=== PATIENT | male | born 1940 | race Caucasian/White ===

== ENCOUNTER 2017-10-24 03:20 | Inpatient (IN) | payer OTHER, MEDICARE ==
[2017-10-24] VITALS (23 sets, daily range): BP systolic 137–194; BP diastolic 64–108; PULSE 69–115; RESP 13–37; TEMP 98–101.9; O2SAT 83–100
[~2017-10-24] VITALS: Ht 165.1 cm; Wt 94.0 kg
[~2017-10-24 03:20] MED LIST: ASPI81TA82 PO; BACT800T5 PO; COEN400C PO; GLIP5 PO; METF1000 PO; MISC1CAP2 PO; OCUV PO; SIMV5TAB3 PO; TAMS0.4C67 PO; TRAZ100 PO; XANA1TAB6 PO
[2017-10-24] MEDS ORDERED: SODIUM CHLOR 0.9% 1000 ML INJ 1,000 ML IV ONE ×2 (03:35→04:45)
--- NOTE | 2017-10-24 03:35 | PD ---
HPI Chief Complaint: General Weakness Time Seen by Provider: 03:35 Travel History International Travel<30 days: No Contact w/Intl Traveler<30days: No Traveled to known affect area: No History of Present Illness HPI 76-year-old male presents to the emergency department from home by EMS transport for evaluation of generalized weakness. Patient was noted at home to be up out of bed to go to the bathroom because of generalized weakness he slipped to the floor landing on his knees bilaterally. Patient sustained superficial abrasions to the knees and was too weak to get up off of the floor by himself so knocked on the wall to get assistance from his who found him kneeling on the floor. EMS was called. Upon fire department arrival patient was placed on monitor and was identified to have ST elevation with QS pattern noted in lead 2 and aVF. Patient was given bolus of normal saline and upon EMS arrival patient was identified to be in a sinus tachycardic rhythm with frequent unifocal PVCs but no ST elevation was identified. PVCs decreased with further fluid hydration. Patient denies having any chest pain or shortness of breath. Denied any nausea or vomiting or referred neck jaw back shoulder arm or abdominal pain. Patient complains of bilateral knee pain secondary to landing on both knees and inability to stand secondary to knee pain and generalized weakness. No prior history of CAD or myocardial infarction. Patient does have history of hypertension dyslipidemia atrial fibrillation right bundle branch block chronic kidney disease and diabetes. Unknown use of anticoagulation therapy. Patient has chronic indwelling urinary catheter 1 year. [facility] Past Medical History Narrative Medical Diabetes chronic kidney disease depression atrial fibrillation dyslipidemia insomnia chronic low back pain hearing impaired umbilical herniorrhaphy right bundle branch block left anterior fascicular block CAD hyponatremia urinary retention unsteady gait; nursing notes reviewed High Cholesterol: Yes Diabetes: Yes (TYPE II) Diminished Hearing: Yes ([facility]) Genitourinary: Yes (UTI (04/21/16)) Past Surgical History Abdominal Surgery: Yes (UMBILICAL HERNIA REPAIR) Social History Alcohol Use: No (QUIT 1978) Tobacco Use: No (QUIT "A LONG TIME AGO") Substance Use: No Allergies-Medications (Allergen,Severity, Reaction): Coded Allergies: No Known Allergies (Verified , 04/21/16) Reported Meds & Prescriptions Reported Meds & Active Scripts Active Review of Systems Except as stated in HPI: all other systems reviewed are Neg General / Constitutional: No: Fever HENT: No: Congestion Cardiovascular: No: Chest Pain or Discomfort Respiratory: No: Shortness of Breath Gastrointestinal: No: Abdominal Pain Genitourinary: No: Flank Pain Musculoskeletal: Positive: Myalgias, Arthralgias, Pain (bilateral knees) Skin: No Rash Neurologic: Positive: Weakness, No: Dizziness, Syncope, Focal Abnormalities, Coordination Problem Psychiatric: No: Anxiety Hematologic/Lymphatic: No: Lymph Node Enlargement Physical Exam Narrative GENERAL: Well-developed well-nourished male in no acute distress no respiratory distress; GCS 15 SKIN: Warm and dry. HEAD: Normocephalic. Atraumatic. No scalp tenderness soft tissue swelling or bony abnormality. EYES: No scleral icterus. No injection or drainage. NECK: Supple, trachea midline. No JVD or lymphadenopathy. No midline tenderness to direct palpation along the cervical spine. CARDIOVASCULAR: Increased Regular rate and rhythm without murmurs, gallops, or rubs; occasional skipped beat. RESPIRATORY: Breath sounds equal bilaterally. No accessory muscle use. Clear to auscultation bilaterally. GASTROINTESTINAL: Abdomen soft, non-tender, nondistended. MUSCULOSKELETAL: No cyanosis, or edema. Bilateral knee pain without effusion or decreased range of motion or deformity noted bilateral abrasions. Bilateral radial and dorsalis pedis pulses 2+ to palpation. BACK: Nontender without obvious deformity. No CVA tenderness. Data Data Last Documented VS Vital Signs Date Time Temp Pulse Resp B/P (MAP) Pulse Ox O2 Delivery O2 Flow Rate FiO2 10/24/17 03:24 98.5 115 18 142/64 (90) 97 Orders Orders Electrocardiogram (10/24/17 03:35) Complete Blood Count With Diff (10/24/17 03:35) Comprehensive Metabolic Panel (10/24/17 03:35) Magnesium (Mg) (10/24/17 03:35) B-Type Natriuretic Peptide (10/24/17 03:35) Ckmb (Isoenzyme) Profile (10/24/17 03:35) Troponin I (10/24/17 03:35) Act Partial Throm Time (Ptt) (10/24/17 03:35) Prothrombin Time / Inr (Pt) (10/24/17 03:35) Urinalysis - C+S If Indicated (10/24/17 03:35) Chest, Single Ap (10/24/17 03:35) Ecg Monitoring (10/24/17 03:35) Iv Access Insert/Monitor (10/24/17 03:35) Oximetry (10/24/17 03:35) Sodium Chloride 0.9% Flush (Ns Flush) (10/24/17 03:45) Sodium Chlor 0.9% 1000 Ml Inj (Ns 1000 M (10/24/17 03:35) Sodium Chlorid 0.9% 500 Ml Inj (Ns 500 M (10/24/17 03:45) Lactic Acid (10/24/17 03:44) Blood Culture (10/24/17 03:44) Urine Culture (10/24/17 03:40) CKMB (10/24/17 03:39) CKMB% (10/24/17 03:39) Piperacil-Tazo 4.5 Gm Premix (Zosyn 4.5 (10/24/17 04:30) Vancomycin Inj (Vancomycin Inj) (10/24/17 04:30) Sodium Chlor 0.9% 1000 Ml Inj (Ns 1000 M (10/24/17 04:45) Labs Laboratory Tests Test 10/24/17 03:39 10/24/17 03:40 10/24/17 03:50 White Blood Count 16.7 TH/MM3 Red Blood Count 4.50 MIL/MM3 Hemoglobin 13.6 GM/DL Hematocrit 41.6 % Mean Corpuscular Volume 92.5 FL Mean Corpuscular Hemoglobin 30.2 PG Mean Corpuscular Hemoglobin Concent 32.6 % Red Cell Distribution Width 13.5 % Platelet Count 264 TH/MM3 Mean Platelet Volume 8.6 FL Neutrophils (%) (Auto) 84.7 % Lymphocytes (%) (Auto) 6.0 % Monocytes (%) (Auto) 8.9 % Eosinophils (%) (Auto) 0.2 % Basophils (%) (Auto) 0.2 % Neutrophils # (Auto) 14.1 TH/MM3 Lymphocytes # (Auto) 1.0 TH/MM3 Monocytes # (Auto) 1.5 TH/MM3 Eosinophils # (Auto) 0.0 TH/MM3 Basophils # (Auto) 0.0 TH/MM3 CBC Comment DIFF FINAL Differential Comment Prothrombin Time 11.1 SEC Prothromb Time International Ratio 1.1 RATIO Activated Partial Thromboplast Time 22.9 SEC Blood Urea Nitrogen 14 MG/DL Creatinine 1.43 MG/DL Random Glucose 222 MG/DL Total Protein 8.0 GM/DL Albumin 3.6 GM/DL Calcium Level 8.4 MG/DL Magnesium Level 2.1 MG/DL Alkaline Phosphatase 67 U/L Aspartate Amino Transf (AST/SGOT) 24 U/L Alanine Aminotransferase (ALT/SGPT) 24 U/L Total Bilirubin 0.6 MG/DL Sodium Level 131 MEQ/L Potassium Level 4.5 MEQ/L Chloride Level 95 MEQ/L Carbon Dioxide Level 18.7 MEQ/L Anion Gap 17 MEQ/L Estimat Glomerular Filtration Rate 48 ML/MIN Total Creatine Kinase 105 U/L Creatine Kinase MB 0.8 NG/ML Troponin I LESS THAN 0.02 NG/ML B-Type Natriuretic Peptide 68 PG/ML Urine Color YELLOW Urine Turbidity CLOUDY Urine pH 8.0 Urine Specific [place] 1.017 Urine Protein 30 mg/dL Urine Glucose (UA) NEG mg/dL Urine Ketones 10 mg/dL Urine Occult Blood MOD Urine Nitrite POS Urine Bilirubin NEG Urine Urobilinogen LESS THAN 2.0 MG/DL Urine Leukocyte Esterase LARGE Urine RBC /hpf Urine WBC /hpf Urine WBC Clumps MANY Urine Amorphous Sediment RARE Urine Bacteria MANY /hpf Urine Mucus FEW /lpf Microscopic Urinalysis Comment CULTURE INDICATED Lactic Acid Level 6.1 mmol/L MDM Medical Decision Making Medical Screen Exam Complete: Yes Emergency Medical Condition: Yes Medical Record Reviewed: Yes Interpretation(s) EKG: Sinus tachycardia rate 121 with frequent PVCs no acute ST elevation or injury pattern change noted; age-indeterminate QS inferiorly in lead 3 aVF incomplete right bundle branch block and left anterior fascicular block At 4:35 AM notified lactic acid elevated at 6.1 Vital Signs Date Time Temp Pulse Resp B/P (MAP) Pulse Ox O2 Delivery O2 Flow Rate FiO2 10/24/17 03:24 98.5 115 18 142/64 (90) 97 CBC & BMP Diagram 10/24/17 03:39 Total Protein 8.0, Albumin 3.6, Calcium Level 8.4 L, Magnesium Level 2.1, Alkaline Phosphatase 67, Aspartate Amino Transf (AST/SGOT) 24, Alanine Aminotransferase (ALT/SGPT) 24, Total Bilirubin 0.6 Differential Diagnosis Generalized weakness, arrhythmia, electrolyte disturbance, ACS, myocardial infarction, sepsis, bilateral knee contusion, fracture Narrative Course Patient placed on radiographer cardiac catheterization with continuous pulse oximetry; EKG performed which shows sinus tachycardia without ST elevation or injury pattern noted to have frequent unifocal PVCs without coupling. Patient given 500 cc bolus of normal saline. Blood cultures obtained along with lactic acid CBC is automated differential with leukocytosis and left shift; chemistries remarkable for bicarbonate of 18.7 and anion gap of 17 as well as renal insufficiency; CK total not elevated troponin I less than 0.02 not elevated and BNP 68. Sodium potassium calcium magnesium values found be grossly within normal range. Urinalysis markedly abnormal with innumerable white blood cells many bacteria and culture indicated. Patient administered presumptive IV antibiotic coverage with Zosyn 4.5 g IV piggyback and vancomycin 1 g. Chest x- ray reveals no obvious infiltrate. EKG is sinus tachycardia with frequent unifocal PVCs no acute ST elevation. Patient will need serial cardiac enzymes in view of fact that prior department rhythm strip does show acute ST elevation in V2 and aVF that has resolved and subsequent cardiac monitoring and on EKGs. Sepsis Criteria SIRS Criteria (2 or more): Heart rate over 90 (115), WBC > 57133, < 4000 or > 10% bands (16,700) Sepsis Criteria (SIRS+source): Infect source susp/known (abnormal ua w/ indwelling catheter) Septic Shock Criteria: Lactic acid >=4 (6.1) Physician Communication Physician Communication Case discussed with on-call [facility] for admission Diagnosis Primary Impression: Sepsis Qualified Codes: A41.9 - Sepsis, unspecified organism Additional Impressions: UTI (urinary tract infection) Qualified Codes: T83.511A - Infection and inflammatory reaction due to indwelling urethral catheter, initial encounter; N39.0 - Urinary tract infection , site not specified Frequent unifocal PVCs Admitting Information Admitting Physician Requests: Admit Nayeli Allen MD Oct 24, 2017 03:35
[2017-10-24] MEDS ORDERED: SODIUM CHLORIDE 0.9% FLUSH 10 ML FLUSH IVF PRN (03:45)
[2017-10-24] MEDS ORDERED: SODIUM CHLORID 0.9% 500 ML INJ 500 ML IV ONE (03:45)
[2017-10-24 03:57] LABS: AUTOMATED NEUTROPHIL # 14.1 TH/MM3 (1.8-7.7); BASOPHIL % 0.2 % (0.0-2.0); EOSINOPHIL % 0.2 % (0.0-4.0); HEMATOCRIT 41.6 % (39.0-51.0); HEMOGLOBIN 13.6 GM/DL (13.0-17.0); MEAN CELL VOLUME 92.5 FL (80.0-100.0); MEAN CORPUSCULAR HEMOGLOBIN 30.2 PG (27.0-34.0); MEAN CORPUSCULAR HGB CONC 32.6 % (32.0-36.0); MEAN PLATELET VOLUME 8.6 FL (7.0-11.0); MONO % 8.9 % (0.0-8.0); MONOCYTE # 1.5 TH/MM3 (0-0.9); NEUT % 84.7 % (16.0-70.0); PLATELET COUNT 264 TH/MM3 (150-450); RED CELL DISTRIBUTION WIDTH 13.5 % (11.6-17.2); WHITE BLOOD COUNT 16.7 TH/MM3 (4.0-11.0)
--- NOTE | 2017-10-24 03:58 | RADRPT ---
EXAM DATE/TIME: 10/24/2017 03:41 [place] COMPARISON: No previous studies available for comparison. INDICATIONS : Palpitations. MEDICAL HISTORY : Diabetes mellitus type II. SURGICAL HISTORY : None. ENCOUNTER: Initial ACUITY: 1 day PAIN SCORE: 0/10 LOCATION: Bilateral chest FINDINGS: Single AP view of the chest. Low lung volumes. The lungs are clear. Cardiomediastinal silhouette with in normal limits. No evidence of pleural effusion or pneumothorax. CONCLUSION: No acute cardiopulmonary disease identified. Aditya Madrigal MD on October 24, 2017 at 3:56 Board Certified Radiologist. This report was verified electronically.
[2017-10-24 04:05] LABS: AMORPHOUS SEDIMENT, URINE RARE; BACTERIA, URINE MANY /hpf; BILIRUBIN, URINE NEG (NEG); BLOOD, URINE MOD (NEG); GLUCOSE,URINE NEG (NEG); KETONE, URINE 10 mg/dL (NEG); MUCUS URINE FEW /lpf (OCC); NITRITE,URINE POS (NEG); URINE COLOR YELLOW (YELLW/STRAW); URINE LEUKOCYTE ESTERASE LARGE (NEG); WHITE BLOOD CELL CLUMPS MANY
[2017-10-24 04:19] LABS: ALBUMIN 3.6 GM/DL (3.4-5.0); ALKALINE PHOSPHATASE 67 U/L (45-117); ALT (GPT) 24 U/L (12-78); AST (GOT) 24 U/L (15-37); BICARBONATE 18.7 MEQ/L (21.0-32.0); BLOOD UREA NITROGEN 14 MG/DL (7-18); CALCIUM 8.4 MG/DL (8.5-10.1); CHLORIDE 95 MEQ/L (98-107); CREATININE 1.43 MG/DL (0.60-1.30); GLOMERULAR FILTRATION RATE 48 ML/MIN (>89); GLUCOSE,RANDOM 222 MG/DL (74-106); MAGNESIUM 2.1 MG/DL (1.5-2.5); SODIUM (NA) 131 MEQ/L (136-145); TOTAL BILIRUBIN ADULT 0.6 MG/DL (0.2-1.0); TROPONIN I LESS THAN 0.02 NG/ML (0.02-0.05)
[2017-10-24 04:23] LABS: INTERNATIONAL NORMALIZED RATIO 1.1 RATIO; PROTHROMBIN TIME - PATIENT 11.1 SEC (9.8-11.6)
[2017-10-24] MEDS ORDERED: VANCOMYCIN INJ 1,000 MG in SODIUM CHLOR 0.9% 250 ML INJ 250 ML IV ONE (04:30)
[2017-10-24] MEDS ORDERED: PIPERACIL-TAZO 4.5 GM PREMIX 100 ML IV ONE (04:30)
--- NOTE | 2017-10-24 05:31 | HHI.HP ---
HPI Service Critical Care Medicine Primary Care Physician Unknown Admission Diagnosis severe sepsis; uti; PVCs Diagnosis: Travel History International Travel<30 Days: No Contact w/Intl Traveler <30 Da: No Traveled to Known Affected Are: No History of Present Illness 76-year-old male presents for evaluation of generalized weakness. Patient was noted at home to be up out of bed to go to the bathroom because of generalized weakness he slipped to the floor landing on his knees bilaterally. Patient sustained superficial abrasions to the knees and was too weak to get up off of the floor by himself so knocked on the wall to get assistance from his who found him kneeling on the floor. EMS was called. Upon fire department arrival patient was placed on monitor and was identified to have ST elevation with QS pattern noted in lead 2 and aVF. He was given bolus of normal saline. Arrival to emergency department he was in sinus tachycardic rhythm with frequent unifocal PVCs but no ST elevation. PVCs decreased with further fluid hydration. Patient denies having any chest pain or shortness of breath. Denied any nausea or vomiting or referred neck jaw back shoulder arm or abdominal pain. Patient complains of bilateral knee pain secondary to landing on both knees and inability to stand secondary to knee pain and generalized weakness. No prior history of CAD or myocardial infarction. Patient does have history of hypertension dyslipidemia atrial fibrillation right bundle branch block chronic kidney disease and diabetes. Patient has chronic indwelling urinary catheter 1 year. Review of Systems Constitutional: COMPLAINS OF: Fatigue, Fever, Dizziness, DENIES: Diaphoretic episodes, Weight gain, Weight loss, Chills, Change in appetite, Night Sweats Endocrine: DENIES: Heat/cold intolerance, Polydipsia, Polyuria, Polyphagia Eyes: DENIES: Blurred vision, Diplopia, Eye inflammation, Eye pain, Vision loss , Photosensitivity, Double Vision Ears, nose, mouth, throat: DENIES: Tinnitus, Hearing loss, Vertigo, Nasal discharge, Oral lesions, Throat pain, Hoarseness, Ear Pain, Running Nose, Epistaxis, Sinus Pain, Toothache, Odynophagia Respiratory: DENIES: Apneas, Cough, Snoring, Wheezing, Hemoptysis, Sputum production, Shortness of breath Cardiovascular: DENIES: Chest pain, Palpitations, Syncope, Dyspnea on Exertion , PND, Lower Extremity Edema, Orthopnea, Claudication Gastrointestinal: DENIES: Abdominal pain, Black stools, Bloody stools, Constipation, Diarrhea, Nausea, Vomiting, Difficulty Swallowing, Anorexia Genitourinary: DENIES: Sexual dysfunction, Urinary frequency, Urinary incontinence, Urgency, Hematuria, Dysuria, Nocturia, Penile Discharge, Testicular Pain, Testicular Swelling Musculoskeletal: COMPLAINS OF: Joint pain, DENIES: Muscle aches, Stiffness, Joint Swelling, Back pain, Neck pain Integumentary: DENIES: Abnormal pigmentation, Nail changes, Pruritus, Rash Hematologic/lymphatic: DENIES: Bruising, Lymphadenopathy Immunologic/allergic: DENIES: Eczema, Urticaria Neurologic: COMPLAINS OF: Abnormal gait, Localized weakness, DENIES: Headache, Paresthesias, Seizures, Speech Problems, Tremor, Poor Balance Psychiatric: DENIES: Anxiety, Confusion, Mood changes, Depression, Hallucinations, Agitation, Suicidal Ideation, Homicidal Ideation, Delusions Past Family Social History Allergies: Coded Allergies: No Known Allergies (Verified Allergy, Unknown, 10/24/17) Past Medical History Diabetes Chronic kidney disease Depression Atrial fibrillation Dyslipidemia Insomnia Chronic low back pain Hearing impaired Umbilical hernia Hyponatremia Urinary retention Unsteady gait Diabetes type 2 Past Surgical History Umbilical hernia repair Reported Medications Reported Meds & Active Scripts Active Family History Family history of malignancy Social History Alcohol Use: No (QUIT 1978) Tobacco Use: No (QUIT "A LONG TIME AGO") Substance Use: No Physical Exam Vital Signs Vital Signs Date Time Temp Pulse Resp B/P (MAP) Pulse Ox O2 Delivery O2 Flow Rate FiO2 10/24/17 04:44 92 18 155/68 (97) 96 Room Air 10/24/17 03:24 98.5 115 18 142/64 (90) 97 Physical Exam GENERAL: Well-developed well-nourished male in no acute distress no respiratory distress; GCS 15 SKIN: Warm and dry. HEAD: Normocephalic. Atraumatic. No scalp tenderness soft tissue swelling or bony abnormality. EYES: No scleral icterus. No injection or drainage. NECK: Supple, trachea midline. No JVD or lymphadenopathy. No midline tenderness to direct palpation along the cervical spine. CARDIOVASCULAR: Increased Regular rate and rhythm without murmurs, gallops, or rubs; occasional skipped beat. RESPIRATORY: Breath sounds equal bilaterally. No accessory muscle use. Clear to auscultation bilaterally. GASTROINTESTINAL: Abdomen soft, non-tender, nondistended. MUSCULOSKELETAL: No cyanosis, or edema. Bilateral knee pain without effusion or decreased range of motion or deformity noted bilateral abrasions. Bilateral radial and dorsalis pedis pulses 2+ to palpation. BACK: Nontender without obvious deformity. No CVA tenderness. NEURO: Alert awake oriented 3, no focal weakness Laboratory Laboratory Tests Test 10/24/17 03:39 10/24/17 03:40 10/24/17 03:50 White Blood Count 16.7 Red Blood Count 4.50 Hemoglobin 13.6 Hematocrit 41.6 Mean Corpuscular Volume 92.5 Mean Corpuscular Hemoglobin 30.2 Mean Corpuscular Hemoglobin Concent 32.6 Red Cell Distribution Width 13.5 Platelet Count 264 Mean Platelet Volume 8.6 Neutrophils (%) (Auto) 84.7 Lymphocytes (%) (Auto) 6.0 Monocytes (%) (Auto) 8.9 Eosinophils (%) (Auto) 0.2 Basophils (%) (Auto) 0.2 Neutrophils # (Auto) 14.1 Lymphocytes # (Auto) 1.0 Monocytes # (Auto) 1.5 Eosinophils # (Auto) 0.0 Basophils # (Auto) 0.0 CBC Comment DIFF FINAL Differential Comment Prothrombin Time 11.1 Prothromb Time International Ratio 1.1 Activated Partial Thromboplast Time 22.9 Blood Urea Nitrogen 14 Creatinine 1.43 Random Glucose 222 Total Protein 8.0 Albumin 3.6 Calcium Level 8.4 Magnesium Level 2.1 Alkaline Phosphatase 67 Aspartate Amino Transf (AST/SGOT) 24 Alanine Aminotransferase (ALT/SGPT) 24 Total Bilirubin 0.6 Sodium Level 131 Potassium Level 4.5 Chloride Level 95 Carbon Dioxide Level 18.7 Anion Gap 17 Estimat Glomerular Filtration Rate 48 Total Creatine Kinase 105 Creatine Kinase MB 0.8 Troponin I LESS THAN 0.02 B-Type Natriuretic Peptide 68 Urine Color YELLOW Urine Turbidity CLOUDY Urine pH 8.0 Urine Specific [place] 1.017 Urine Protein 30 Urine Glucose (UA) NEG Urine Ketones 10 Urine Occult Blood MOD Urine Nitrite POS Urine Bilirubin NEG Urine Urobilinogen LESS THAN 2.0 Urine Leukocyte Esterase LARGE Urine RBC Urine WBC Urine WBC Clumps MANY Urine Amorphous Sediment RARE Urine Bacteria MANY Urine Mucus FEW Microscopic Urinalysis Comment CULTURE INDICATED Lactic Acid Level 6.1 Date/Time Source Procedure Growth Status 10/24/17 03:55 Blood Peripheral Aerobic Blood Culture Pending Received 10/24/17 03:55 Blood Peripheral Anaerobic Blood Culture Pending Received 10/24/17 03:40 Urine Random Urine Urine Culture Pending Received Result Diagram: 10/24/1733810/24/17338 Septic Shock Reassessment Septic shock perfusion: reassessment completed Caprini VTE Risk Assessment Caprini VTE Risk Assessment: Mod/High Risk (score >= 2) Caprini Risk Assessment Model Point Value = 1 Point Value = 2 Point Value = 3 Point Value = 5 Age 41-60 Minor surgery BMI > 25 kg/m2 Swollen legs Varicose veins or History of unexplained or recurrent spontaneous Oral contraceptives or hormone replacement Sepsis (< 1 month) Serious lung disease, including pneumonia (< 1 month) Abnormal pulmonary function Acute myocardial infarction Congestive heart failure (< 1 month) History of inflammatory bowel disease Medical patient at bed rest Age 61-74 Arthroscopic surgery Major open surgery (> 45 min) Laparoscopic surgery (> 45 min) Malignancy Confined to bed (> 72 hours) Immobilizing plaster cast Central venous access Age >= 75 History of VTE Family history of VTE Factor V Leiden Prothrombin [id number] Lupus anticoagulant Anticardiolipin antibodies Elevated serum homocysteine Heparin-induced thrombocytopenia Other congenital or acquired thrombophilia Stroke (< 1 month) Elective arthroplasty Hip, pelvis, or leg fracture Acute spinal cord injury (< 1 month) Prophylaxis Regimen Total Risk Factor Score Risk Level Prophylaxis Regimen 0-1 Low Early ambulation 2 Moderate Order ONE of the following: *Sequential Compression Device (SCD) *Heparin 5000 units SQ BID 3-4 Higher Order ONE of the following medications: *Heparin 5000 units SQ TID *Enoxaparin/Lovenox 40 mg SQ daily (WT < 150 kg, CrCl > 30 mL/min) *Enoxaparin/Lovenox 30 mg SQ daily (WT < 150 kg, CrCl > 10-29 mL/min) *Enoxaparin/Lovenox 30 mg SQ BID (WT < 150 kg, CrCl > 30 mL/min) AND/OR *Sequential Compression Device (SCD) 5 or more Highest Order ONE of the following medications: *Heparin 5000 units SQ TID (Preferred with Epidurals) *Enoxaparin/Lovenox 40 mg SQ daily (WT < 150 kg, CrCl > 30 mL/min) *Enoxaparin/Lovenox 30 mg SQ daily (WT < 150 kg, CrCl > 10-29 mL/min) *Enoxaparin/Lovenox 30 mg SQ BID (WT < 150 kg, CrCl > 30 mL/min) AND *Sequential Compression Device (SCD) Assessment and Plan Assessment and Plan Sepsis - Likely urinary tract origin - Panculture - Broad-spectrum antibiotics - De-escalate per sensitivity Diabetes mellitus - Insulin sliding scale - Hold by mouth meds until lactic acidosis resolved Lactic acidosis - Due to above - Monitor trend - Aggressive IV fluid hydration Abnormal EKG per EMS - 2-D echo - Series of EKGs and troponins DVT GI prophylaxis - Teds SCDs - Subcutaneous heparin - Pepcid Critical Care: The total critical care time was 35 minutes. Time to perform other separately billable procedures was not included in the critical care time. Molina Singleton MD Oct 24, 2017 5:31 am
[2017-10-24] MEDS ORDERED: MAGNESIUM HYDROXIDE SUSP 30 ML CUP PO PRN (05:45)
[2017-10-24] MEDS ORDERED: ONDANSETRON HCL 4 MG/2 ML VIAL IV PUSH PRN (05:45)
[2017-10-24] MEDS ORDERED: LACTULOSE SYRUP 20 GM/30 ML CUP PO PRN (05:45)
[2017-10-24] MEDS ORDERED: Vancomycin Consult Pharmacy 1 EA OTHER SCH (05:45)
[2017-10-24] MEDS ORDERED: BISACODYL 10 MG SUPP RECTAL PRN (05:45)
[2017-10-24] MEDS ORDERED: SENNOSIDES 8.6 MG TAB PO PRN (05:45)
[2017-10-24] MEDS ORDERED: MISCELLANEOUS NURSING INFORMATION XX SCH (05:45)
[2017-10-24] MEDS ORDERED: SODIUM CHLORIDE 0.9% FLUSH 10 ML FLUSH IV FLUSH PRN (05:45)
[2017-10-24] MEDS ORDERED: RESP: ALBUTEROL 2.5 MG/IPRATROPIUM 0.5 MG NEB (PRN) INH (05:45)
[2017-10-24] MEDS ORDERED: CHLORHEXIDINE GLUCONATE 2 % 1 PACK (2 CLOTHS) TOP PRN (05:45)
[2017-10-24] MEDS ORDERED: DEXTROSE 50% IN WATER 50 ML VIAL(D50) IV PUSH PRN (06:15)
[2017-10-24] MEDS ORDERED: GLUCAGON 1 MG/ML VIAL OTHER PRN (06:15)
[2017-10-24] MEDS ORDERED: TRAZ100T10 PO (06:21)
[2017-10-24] MEDS ORDERED: COEN400C PO (06:21)
[2017-10-24] MEDS ORDERED: METF1000 PO (06:21)
[2017-10-24] MEDS ORDERED: SIMV5TAB3 PO (06:21)
[2017-10-24] MEDS ORDERED: ASPI-516 CHEW (06:21)
[2017-10-24] MEDS ORDERED: GLIP5TAB8 PO (06:21)
[2017-10-24] MEDS: SODIUM CHLOR 0.9% 1000 ML INJ 1,000 ML IV SCH ×3 (06:22→22:28)
[2017-10-24] MEDS: HEPARIN SODIUM - SQ 10,000 UNITS/ML VIAL SQ SCH ×3 (06:34→20:45)
[2017-10-24] MEDS: DOCUSATE SODIUM 50 MG/SENNA 8.6 MG TAB PO SCH ×2 (10:20→20:45)
[2017-10-24] MEDS: FAMOTIDINE 20 MG/2 ML VIAL IV PUSH SCH ×2 (10:20→20:45)
[2017-10-24] MEDS: INSULIN NovoLIN REGULAR SUPPLEMENTAL SCALE SQ SCH ×4 (10:21→20:46)
[2017-10-24] MEDS: CEFEPIME INJ 2,000 MG in SODIUM CHLORIDE 0.9% INJ 100 ML IV SCH ×2 (10:21→15:53)
[2017-10-24] MEDS: SODIUM CHLORIDE 0.9% FLUSH 10 ML FLUSH IV FLUSH SCH ×2 (10:21→20:46)
--- NOTE | 2017-10-24 10:57 | PD.CONS ---
HPI Service Urology Consult Requested By Reason for Consult UTI, change SP tube Primary Care Physician Unknown Diagnosis: (1) UTI (urinary tract infection) ICD Code: N39.0 - Urinary tract infection, site not specified (2) Sepsis ICD Code: A41.9 - Sepsis, unspecified organism History of Present Illness 76 yo male h/o neurogenic bladder admitted after falling at home. During evaluation in ER, he was found to be febrile with temp of 101, WBC 16,000 and a UTI. He was admitted for further evaluation and Urology was consulted for SP tube change. He has had the Suprapubic Catheter for over 6 months, initially place by Dr. Jeffery, changed usually every month. It was last changed mid- September 2016. Denies abdominal pain, flank pain, nausea, vomiting, chest pain or trouble breathing. He gets frequent UTIs. Denies h/o kidney stones. Review of Systems Constitutional: COMPLAINS OF: Fever Musculoskeletal: COMPLAINS OF: Muscle aches Except as stated in HPI: all other systems reviewed are Neg Past Family Social History Past Medical History Neurogenic Bladder, UTI, Afib, hypercholesterolemia Past Surgical History umbilical hernia repair Reported Medications Metformin, glipizide Allergies: Coded Allergies: No Known Allergies (Verified Allergy, Unknown, 10/24/17) Active Ordered Medications Vancomycin, Insulin, Heparin Family History Denies urolithiasis, malignancies Social History h/o tobacco use; denies illicit drugs or alcohol use Physical Exam Vital Signs Date Time Temp Pulse Resp B/P (MAP) Pulse Ox O2 Delivery O2 Flow Rate FiO2 10/24/17 07:00 101.9 89 20 165/74 (104) 95 10/24/17 06:23 92 18 155/67 (96) 96 10/24/17 06:04 96 10/24/17 04:44 92 18 155/68 (97) 96 Room Air 10/24/17 03:24 98.5 115 18 142/64 (90) 97 Physical Exam GENERAL: This is a well-nourished, well-developed patient, in no apparent distress. SKIN: No rashes, ecchymoses or lesions. Cool and dry. HEAD: Atraumatic. Normocephalic. No temporal or scalp tenderness. EYES: Pupils equal round and reactive. Extraocular motions intact. No scleral icterus. No injection or drainage. ENT: Nose without bleeding, purulent drainage or septal hematoma. Throat without erythema, tonsillar hypertrophy or exudate. Uvula midline. Airway patent. NECK: Trachea midline. No JVD or lymphadenopathy. Supple, nontender, no meningeal signs. CARDIOVASCULAR: Regular rate and rhythm without murmurs, gallops, or rubs. RESPIRATORY: Clear to auscultation. Breath sounds equal bilaterally. No wheezes , rales, or rhonchi. GASTROINTESTINAL: Abdomen soft, non-tender, nondistended. No hepato-splenomegaly , or palpable masses. No guarding. GENITOURINARY: penis normal, urethral meatus normal, testes without mass. MUSCULOSKELETAL: Extremities without clubbing, cyanosis, or edema. No joint tenderness, effusion, or edema noted. No calf tenderness. Negative Homans sign bilaterally. NEUROLOGICAL: Awake and alert. Cranial nerves II through XII intact. Motor and sensory grossly within normal limits. Five out of 5 muscle strength in all muscle groups. Normal speech. Lab results reviewed: Yes Laboratory Tests Test 10/24/17 03:39 10/24/17 03:40 10/24/17 03:50 10/24/17 06:45 White Blood Count 16.7 Red Blood Count 4.50 Hemoglobin 13.6 Hematocrit 41.6 Mean Corpuscular Volume 92.5 Mean Corpuscular Hemoglobin 30.2 Mean Corpuscular Hemoglobin Concent 32.6 Red Cell Distribution Width 13.5 Platelet Count 264 Mean Platelet Volume 8.6 Neutrophils (%) (Auto) 84.7 Lymphocytes (%) (Auto) 6.0 Monocytes (%) (Auto) 8.9 Eosinophils (%) (Auto) 0.2 Basophils (%) (Auto) 0.2 Neutrophils # (Auto) 14.1 Lymphocytes # (Auto) 1.0 Monocytes # (Auto) 1.5 Eosinophils # (Auto) 0.0 Basophils # (Auto) 0.0 CBC Comment DIFF FINAL Differential Comment Prothrombin Time 11.1 Prothromb Time International Ratio 1.1 Activated Partial Thromboplast Time 22.9 Blood Urea Nitrogen 14 Creatinine 1.43 Random Glucose 222 Total Protein 8.0 Albumin 3.6 Calcium Level 8.4 Magnesium Level 2.1 Alkaline Phosphatase 67 Aspartate Amino Transf (AST/SGOT) 24 Alanine Aminotransferase (ALT/SGPT) 24 Total Bilirubin 0.6 Sodium Level 131 Potassium Level 4.5 Chloride Level 95 Carbon Dioxide Level 18.7 Anion Gap 17 Estimat Glomerular Filtration Rate 48 Total Creatine Kinase 105 Creatine Kinase MB 0.8 Troponin I LESS THAN 0.02 B-Type Natriuretic Peptide 68 Urine Color YELLOW Urine Turbidity CLOUDY Urine pH 8.0 Urine Specific [place] 1.017 Urine Protein 30 Urine Glucose (UA) NEG Urine Ketones 10 Urine Occult Blood MOD Urine Nitrite POS Urine Bilirubin NEG Urine Urobilinogen LESS THAN 2.0 Urine Leukocyte Esterase LARGE Urine RBC Urine WBC Urine WBC Clumps MANY Urine Amorphous Sediment RARE Urine Bacteria MANY Urine Mucus FEW Microscopic Urinalysis Comment CULTURE INDICATED Lactic Acid Level 6.1 Date/Time Source Procedure Growth Status 10/24/17 03:55 Blood Peripheral Aerobic Blood Culture Pending Received 10/24/17 03:55 Blood Peripheral Anaerobic Blood Culture Pending Received 10/24/17 03:40 Urine Random Urine Urine Culture Pending Received Result Diagram: 10/24/17 0339 10/24/17338 Imaging Last Impressions Chest X-Ray 10/24/17334 Signed Impressions: Service Date/Time: Tuesday, October 24, 2017 03:41 - CONCLUSION: No acute cardiopulmonary disease identified. Aditya Madrigal MD Assessment and Plan Assessment and Plan 76 yo male with neurogenic bladder, managed with SP tube, admitted after falling at home and found to have a UTI -SP tube changed successfully -Since he is symptomatic, recommend treatment with appropriate antibiotics. -Renal U/S -F/U with Dr. Jeffery upon d/c. Problem Qualifiers (1) UTI (urinary tract infection): Qualified Codes: T83.511A - Infection and inflammatory reaction due to indwelling urethral catheter, initial encounter; N39.0 - Urinary tract infection , site not specified (2) Sepsis: Qualified Codes: A41.9 - Sepsis, unspecified organism Burak Rosa MD Oct 24, 2017 10:57
--- NOTE | 2017-10-24 13:28 | RADRPT ---
EXAM DATE/TIME: 10/24/2017 11:38 [facility] COMPARISON: No previous studies available for comparison. INDICATIONS : Abnormal lab values. MEDICAL HISTORY : Hypercholesterolemia. Diabetes mellitus type 2. A-fib. UTI. Umbilical hernia. SURGICAL HISTORY : Umbilical hernia repair. Neurogenic bladder. Left hand surgery. ENCOUNTER: Initial ACUITY: 1 day PAIN SCORE: 10/27 LOCATION: Bilateral flank MEASUREMENTS: RIGHT KIDNEY: 11.5 x 5.6 x 5.8 cm LEFT KIDNEY: 11.6 x 6.5 x 6.0 cm FINDINGS: The kidneys are normal bilaterally without evidence of mass or hydronephrosis. There are simple cysts on the right the largest measuring 4.7 cm in the upper pole. A Branch catheter is present within the bladder which does not allow for evaluation. CONCLUSION: 1. Right renal cysts otherwise unremarkable Alexander Farnsworth MD on October 24, 2017 at 13:24 Board Certified Radiologist. This report was verified electronically.
--- NOTE | 2017-10-24 14:07 | EKG ---
Date Performed: 10/24/2017 Time Performed: 03:24:18 PTAGE: 76 years EKG: SINUS TACHYCARDIA WITH FREQUENT VENTRICULAR PREMATURE COMPLEXES INCOMPLETE RIGHT BUNDLE BRA NCH BLOCK LEFT ANTERIOR FASCICULAR BLOCK ABNORMAL ECG NO PREVIOUS TRACING DOCTOR: Doug Sparks Interpretating Date/Time 10/24/2017 14:06:45
--- NOTE | 2017-10-24 14:07 | EKG ---
Date Performed: 10/24/2017 Time Performed: 10:25:34 PTAGE: 76 years EKG: Sinus rhythm WITH FIRST DEGREE AV BLOCK WITH OCCASIONAL VENTRICULAR PREMATURE COMPLEXES RIGHT BUNDLE BRANCH BLOCK LEFT ANTERIOR FASCICULAR BLOCK ABNORMAL ECG PREVIOUS TRACING : 10/24/2017 03.24 Compared to prior tracing no significant change DOCTOR: Doug Sparks Interpretating Date/Time 10/24/2017 14:07:17
[2017-10-24] MEDS: MORPHINE SULFATE 2 MG/ML INJ IV PUSH PRN ×3 (14:38→20:46)
[2017-10-24] MEDS: VANCOMYCIN INJ 2,000 MG in SODIUM CHLORID 0.9% 500 ML INJ 500 ML IV SCH (17:00)
--- NOTE | 2017-10-24 17:15 | ECHRPT ---
Indication: CVA/TIA CONCLUSIONS The left ventricular systolic function is normal with an estimated ejection fraction in the range of 60-65%. Normal left ventricular size. Moderate concentric left ventricular hypertrophy. No regional wall motion abnormalities are present. Trace mitral valve regurgitation. There is trace tricuspid valve regurgitation. The estimated pulmonary arterial pressure is 39.2 mmHg. BP: 165 / 74 HR: 104 Rhythm: PVCs MEASUREMENTS (Male / Female) Normal Values Technical Quality:Fair 2D ECHO LV Diastolic Diameter PLAX 3.8 cm 4.2 - 5.9 / 3.9 - 5.3 cm LV Systolic Diameter PLAX 2.6 cm IVS Diastolic Thickness 1.5 cm 0.6 - 1.0 / 0.6 - 0.9 cm LVPW Diastolic Thickness 1.5 cm 0.6 - 1.0 / 0.6 - 0.9 cm LV Relative Wall Thickness 0.8 LVOT Diameter 2.0 cm LA Systolic Diameter LX 4.0 cm 3.0 - 4.0 / 2.7 - 3.8 cm LV Ejection Fraction MOD 4C 64.9 % LV Cardiac Index MOD 4C 2995.0 cm/minm LV Ejection Fraction 4C AL 65.5 % LV Cardiac Index 4C AL 3131.4 cm/minm M-MODE Aortic Root Diameter MM 2.8 cm LA Systolic Diameter MM 3.4 cm LA Ao Ratio MM 1.2 AV Cusp Separation MM 1.6 cm DOPPLER AV Peak Velocity 144.0 cm/s AV Peak Gradient 8.3 mmHg LVOT Peak Velocity 108.0 cm/s LVOT Peak Gradient 4.7 mmHg AV Area Cont Eq pk 2.4 cm MV Area PHT 3.6 cm Mitral E Point Velocity 73.5 cm/s Mitral A Point Velocity 129.0 cm/s Mitral E to A Ratio 0.6 LV E' Lateral Velocity 7.0 cm/s Mitral E to LV E' Lateral Ratio 10.5 LV E' Septal Velocity 4.3 cm/s Mitral E to LV E' Septal Ratio 17.1 TR Peak Velocity 270.0 cm/s TR Peak Gradient 29.2 mmHg Right Atrial Pressure 10.0 mmHg Pulmonary Artery Systolic Pressu 39.2 mmHg Right Ventricular Systolic Press 39.2 mmHg PV Peak Velocity 85.5 cm/s PV Peak Gradient 2.9 mmHg FINDINGS LEFT VENTRICLE The left ventricular systolic function is normal with an estimated ejection fraction in the range of 60-65%. Normal left ventricular size. Moderate concentric left ventricular hypertrophy. No regional wall motion abnormalities are present. RIGHT VENTRICLE Normal right ventricular size and systolic function. LEFT ATRIUM The left atrial size is normal. RIGHT ATRIUM The right atrial size is normal. ATRIAL SEPTUM Normal atrial septal thickness without atrial level shunting by limited color doppler interrogation. AORTA The aortic root and proximal ascending aorta are normal in size on limited imaging. MITRAL VALVE Structurally normal mitral valve. Trace mitral valve regurgitation. AORTIC VALVE Trileaflet aortic valve. No aortic valve stenosis or regurgitation. TRICUSPID VALVE Structurally normal tricuspid valve. There is trace tricuspid valve regurgitation. The estimated pulmonary arterial pressure is 39.2 mmHg. PULMONARY VALVE No pulmonary valve regurgitation or stenosis. VESSELS The inferior vena cava is normal in size. PERICARDIUM No pericardial effusion. Angel Kevin MD (Electronically Signed) Final Date:24 October 2017 17:14
--- NOTE | 2017-10-24 17:30 | RADRPT ---
EXAM DATE/TIME: 10/24/2017 15:35 [facility] COMPARISON: No previous studies available for comparison. INDICATIONS : Pain from fall. MEDICAL HISTORY : None. SURGICAL HISTORY : None. ENCOUNTER: Initial ACUITY: 1 day PAIN SCORE: 4/10 LOCATION: Right knee. FINDINGS: Two view examination of the right knee demonstrates no evidence of fracture or dislocation. Bony min eralization is normal. The suprapatellar soft tissues have a normal configuration. There is a 8mm kennedy bchondral cysts in the medial tibial plateau CONCLUSION: 1. There is no evidence of acute fracture. Alexander Farnsworth MD on October 24, 2017 at 17:27 Board Certified Radiologist. This report was verified electronically.
--- NOTE | 2017-10-24 17:34 | RADRPT ---
EXAM DATE/TIME: 10/24/2017 15:40 [facility] COMPARISON: No previous studies available for comparison. INDICATIONS : Pain from fall. MEDICAL HISTORY : None. SURGICAL HISTORY : None. ENCOUNTER: Initial ACUITY: 1 day PAIN SCORE: 4/10 LOCATION: Left knee. FINDINGS: There is mild osteoarthritis with joint space narrowing but no significant marginal osteophyte format ion in the medial tibial femoral compartment. There is no evidence of acute fracture. Bony mineraliza tion is normal. There is no evidence of joint effusion. CONCLUSION: 1. There is no evidence of acute fracture. Alexander Farnsworth MD on October 24, 2017 at 17:31 Board Certified Radiologist. This report was verified electronically.
[2017-10-24 19:47] LABS: TROPONIN I 0.1 NG/ML (0.02-0.05)
[2017-10-24] MEDS ORDERED: LABETALOL HCL 100 MG/20 ML VIAL IV PUSH PRN (20:30)
[2017-10-24] MEDS ORDERED: hydrALAZINE HCL 20 MG/ML VIAL IV PUSH PRN (20:30)
[2017-10-24] MEDS: traZODone HCL 50 MG TAB PO SCH (20:45)
[2017-10-24] MEDS: ZOLPIDEM TARTRATE 5 MG TAB PO PRN (20:45)
[2017-10-25] VITALS (17 sets, daily range): BP systolic 95–164; BP diastolic 53–87; PULSE 61–98; RESP 13–36; TEMP 97.8–99.8; O2SAT 72–97
[2017-10-25] MEDS: CHLORHEXIDINE GLUCONATE 2 % 1 PACK (2 CLOTHS) TOP SCH (00:29)
[2017-10-25] MEDS: CEFEPIME INJ 2,000 MG in SODIUM CHLORIDE 0.9% INJ 100 ML IV SCH ×4 (00:29→22:51)
[2017-10-25] MEDS: LORazepam 2 MG/ML VIAL IV PUSH PRN ×5 (03:21→23:47)
[2017-10-25] MEDS: MORPHINE SULFATE 2 MG/ML INJ IV PUSH PRN ×2 (03:22→23:14)
[2017-10-25 03:49] LABS: BASOPHIL % 0.4 % (0.0-2.0); EOSINOPHIL % 0.4 % (0.0-4.0); HEMATOCRIT 33.9 % (39.0-51.0); HEMOGLOBIN 11.3 GM/DL (13.0-17.0); LYMPH % 15.5 % (9.0-44.0); LYMPHOCYTE # 1.7 TH/MM3 (1.0-4.8); MEAN CELL VOLUME 90.9 FL (80.0-100.0); MEAN CORPUSCULAR HEMOGLOBIN 30.4 PG (27.0-34.0); MEAN CORPUSCULAR HGB CONC 33.5 % (32.0-36.0); MEAN PLATELET VOLUME 7.8 FL (7.0-11.0); MONO % 10.9 % (0.0-8.0); MONOCYTE # 1.2 TH/MM3 (0-0.9); NEUT % 72.8 % (16.0-70.0); PLATELET COUNT 178 TH/MM3 (150-450); RED BLOOD COUNT 3.73 MIL/MM3 (4.50-5.90); RED CELL DISTRIBUTION WIDTH 13.4 % (11.6-17.2)
[2017-10-25 04:24] LABS: ALBUMIN 2.9 GM/DL (3.4-5.0); ALKALINE PHOSPHATASE 54 U/L (45-117); ALT (GPT) 43 U/L (12-78); AST (GOT) 163 U/L (15-37); BICARBONATE 23.3 MEQ/L (21.0-32.0); BLOOD UREA NITROGEN 10 MG/DL (7-18); CALCIUM 7.5 MG/DL (8.5-10.1); CHLORIDE 103 MEQ/L (98-107); CREATININE 0.79 MG/DL (0.60-1.30); GLOMERULAR FILTRATION RATE 95 ML/MIN (>89); GLUCOSE,RANDOM 126 MG/DL (74-106); MAGNESIUM 2.2 MG/DL (1.5-2.5); PHOSPHORUS 2.4 MG/DL (2.5-4.9); SODIUM (NA) 134 MEQ/L (136-145); TOTAL BILIRUBIN ADULT 0.5 MG/DL (0.2-1.0); TOTAL PROTEIN 6.7 GM/DL (6.4-8.2); TROPONIN I 0.06 NG/ML (0.02-0.05)
[2017-10-25] MEDS: HEPARIN SODIUM - SQ 10,000 UNITS/ML VIAL SQ SCH ×3 (04:35→22:06)
[2017-10-25] MEDS: SODIUM CHLOR 0.9% 1000 ML INJ 1,000 ML IV SCH ×3 (06:42→22:51)
[2017-10-25] MEDS: INSULIN NovoLIN REGULAR SUPPLEMENTAL SCALE SQ SCH ×4 (08:00→21:00)
[2017-10-25] MEDS: DOCUSATE SODIUM 50 MG/SENNA 8.6 MG TAB PO SCH ×2 (08:11→22:03)
[2017-10-25] MEDS: FAMOTIDINE 20 MG/2 ML VIAL IV PUSH SCH ×2 (08:11→22:03)
[2017-10-25] MEDS: SODIUM CHLORIDE 0.9% FLUSH 10 ML FLUSH IV FLUSH SCH ×2 (08:12→22:03)
--- NOTE | 2017-10-25 08:18 | HHI.CCPN ---
Subjective Remarks/Hospital Course 76-year-old male presents for evaluation of generalized weakness. Patient was noted at home to be up out of bed to go to the bathroom because of generalized weakness he slipped to the floor landing on his knees bilaterally. Patient sustained superficial abrasions to the knees and was too weak to get up off of the floor by himself so knocked on the wall to get assistance from his who found him kneeling on the floor. EMS was called. Upon fire department arrival patient was placed on monitor and was identified to have ST elevation with QS pattern noted in lead 2 and aVF. He was given bolus of normal saline. Arrival to emergency department he was in sinus tachycardic rhythm with frequent unifocal PVCs but no ST elevation. PVCs decreased with further fluid hydration. Patient denies having any chest pain or shortness of breath. Denied any nausea or vomiting or referred neck jaw back shoulder arm or abdominal pain. Patient complains of bilateral knee pain secondary to landing on both knees and inability to stand secondary to knee pain and generalized weakness. No prior history of CAD or myocardial infarction. Patient does have history of hypertension dyslipidemia atrial fibrillation right bundle branch block chronic kidney disease and diabetes. Patient has chronic indwelling urinary catheter 1 year. Subjective: 10/25: Afebrile. No acute events overnight. Suprapubic catheter was changed by urology yesterday. Evaluation of bilateral knees via x-ray were negative. Patient tolerating diet. Home medications resumed. Objective Vital Signs Date Time Temp Pulse Resp B/P (MAP) Pulse Ox O2 Delivery O2 Flow Rate FiO2 10/25/17 06:00 61 10/25/17 04:00 99.8 17 95/53 (67) 93 10/24/17 21:22 21 10/24/17 04:44 Room Air Intake and Output 10/25/17 10/25/17 10/26/17 08:00 16:00 00:00 Intake Total 1340 ml Output Total 1600 ml Balance -260 ml Result Diagram: 10/25/17 03410/25/17 034 Imaging Last Impressions Chest X-Ray 10/24/17 0335 Signed Impressions: Service Date/Time: Tuesday, October 24, 2017 03:41 - CONCLUSION: No acute cardiopulmonary disease identified. Aditya Madrigal MD Renal Ultrasound 10/24/17 0000 Signed Impressions: Service Date/Time: Tuesday, October 24, 2017 11:38 - CONCLUSION: 1. Right renal cysts otherwise unremarkable Alexander Farnsworth MD Knee X-Ray 10/24/17 0000 Signed Impressions: Service Date/Time: Tuesday, October 24, 2017 15:40 - CONCLUSION: 1. There is no evidence of acute fracture. Alexander Farnsworth MD Objective Remarks GENERAL: Well-developed well-nourished male in no acute distress no respiratory distress; GCS 15 thing comfortably SKIN: Warm and dry. HEAD: Normocephalic. Atraumatic. No scalp tenderness soft tissue swelling or bony abnormality. EYES: No scleral icterus. No injection or drainage. NECK: Supple, trachea midline. No JVD or lymphadenopathy. No midline tenderness to direct palpation along the cervical spine. CARDIOVASCULAR: Increased Regular rate and rhythm without murmurs, gallops, or rubs; occasional skipped beat. RESPIRATORY: Breath sounds equal bilaterally. No accessory muscle use. Clear to auscultation bilaterally. GASTROINTESTINAL: Abdomen soft, non-tender, nondistended. MUSCULOSKELETAL: No cyanosis, or edema. Bilateral knee pain without effusion or decreased range of motion or deformity noted bilateral abrasions. Bilateral radial and dorsalis pedis pulses 2+ to palpation. BACK: Nontender without obvious deformity. No CVA tenderness. NEURO: Alert awake oriented 3, no focal weakness A/P Assessment and Plan Sepsis Leukocytosis - Likely urinary tract origin - Panculture - Continue Broad-spectrum antibiotics-leukocytosis resolving - De-escalate per sensitivity - Suprapubic catheter Diabetes mellitus - Insulin sliding scale - Hold by mouth meds until lactic acidosis resolved Lactic acidosis - Due to above - Monitor trend - IV fluid hydration-decrease to 125/hour Abnormal EKG per EMS - 2-D echo-EF 60-65%, trace TR, trace MR, no RWMA, PAP 39 - Series of EKGs and troponins DVT GI prophylaxis - Teds SCDs - Subcutaneous heparin - Pepcid Dispo: Level 2 follow up [facility]. Physician Patricia Aleman MD Oct 25, 2017 08:18
[2017-10-25] MEDS ORDERED: PHARMACY ORDERED LAB ONE (17:45)
[2017-10-25] MEDS: VANCOMYCIN INJ 2,000 MG in SODIUM CHLORID 0.9% 500 ML INJ 500 ML IV SCH (18:00)
[2017-10-25] MEDS: traZODone HCL 50 MG TAB PO SCH (22:03)
[2017-10-25] MEDS: ZOLPIDEM TARTRATE 5 MG TAB PO PRN (23:47)
[2017-10-26] VITALS (11 sets, daily range): BP systolic 126–191; BP diastolic 57–104; PULSE 74–96; RESP 15–23; TEMP 97.9–98.8; O2SAT 87–99
[2017-10-26] MEDS: LORazepam 2 MG/ML VIAL IV PUSH PRN ×2 (01:19→04:10)
[2017-10-26] MEDS: CHLORHEXIDINE GLUCONATE 2 % 1 PACK (2 CLOTHS) TOP SCH (04:00)
[2017-10-26] MEDS ORDERED: PHARMACY ORDERED LAB ONE (05:45)
[2017-10-26] MEDS: HEPARIN SODIUM - SQ 10,000 UNITS/ML VIAL SQ SCH ×3 (07:12→21:50)
[2017-10-26] MEDS: INSULIN NovoLIN REGULAR SUPPLEMENTAL SCALE SQ SCH ×4 (08:00→21:00)
[2017-10-26] MEDS: FAMOTIDINE 20 MG/2 ML VIAL IV PUSH SCH ×2 (08:24→21:50)
[2017-10-26] MEDS: CEFEPIME INJ 2,000 MG in SODIUM CHLORIDE 0.9% INJ 100 ML IV SCH ×2 (08:24→16:37)
[2017-10-26] MEDS: SODIUM CHLORIDE 0.9% FLUSH 10 ML FLUSH IV FLUSH SCH ×2 (08:24→21:00)
[2017-10-26] MEDS: SODIUM CHLOR 0.9% 1000 ML INJ 1,000 ML IV SCH ×3 (08:25→18:31)
[2017-10-26] MEDS: DOCUSATE SODIUM 50 MG/SENNA 8.6 MG TAB PO SCH ×2 (08:25→21:00)
[2017-10-26 10:45] LABS: HEMATOCRIT 37.6 % (39.0-51.0); HEMOGLOBIN 12.9 GM/DL (13.0-17.0); MEAN CELL VOLUME 91.8 FL (80.0-100.0); MEAN CORPUSCULAR HEMOGLOBIN 31.4 PG (27.0-34.0); MEAN CORPUSCULAR HGB CONC 34.2 % (32.0-36.0); MEAN PLATELET VOLUME 8.1 FL (7.0-11.0); PLATELET COUNT 182 TH/MM3 (150-450); RED BLOOD COUNT 4.09 MIL/MM3 (4.50-5.90); RED CELL DISTRIBUTION WIDTH 13.4 % (11.6-17.2); WHITE BLOOD COUNT 8.3 TH/MM3 (4.0-11.0)
[2017-10-26] MEDS ORDERED: POTASSIUM PHOSPHATE MONOBASIC 500 MG TAB PO/TUBE PRN (11:00)
[2017-10-26] MEDS ORDERED: POTASSIUM PHOSPHATE INJ 30 MMOL in SODIUM CHLOR 0.9% 250 ML INJ 250 ML IV PRN (11:00)
[2017-10-26] MEDS ORDERED: POTASSIUM CHLOR 20 MEQ PREMIX 100 ML IV PRN ×2 (11:00)
[2017-10-26] MEDS ORDERED: MAGNESIUM SULFATE INJ 2 GM in SODIUM CHLORIDE 0.9% INJ 96 ML IV PRN (11:00)
[2017-10-26] MEDS ORDERED: MIDAZOLAM HCL 2 MG/2 ML VIAL IV PUSH ONE (11:00)
[2017-10-26] MEDS ORDERED: SODIUM PHOSPHATE INJ 30 MMOL in SODIUM CHLOR 0.9% 250 ML INJ 240 ML IV PRN (11:00)
[2017-10-26] MEDS ORDERED: MAGNESIUM OXIDE 400 MG TAB PO PRN (11:00)
[2017-10-26] MEDS ORDERED: MAGNESIUM SULFATE INJ 4 GM in SODIUM CHLORIDE 0.9% INJ 92 ML IV PRN (11:00)
[2017-10-26] MEDS ORDERED: POTASSIUM PHOSPHATE MONOBASIC 500 MG TAB PO PRN (11:00)
[2017-10-26] MEDS ORDERED: POTASSIUM CHLOR 40 MEQ PREMIX 100 ML IV PRN ×2 (11:00)
[2017-10-26] MEDS ORDERED: POTASSIUM CHLORIDE 25 MEQ EFFERVESCENT TAB PO PRN (11:00)
--- NOTE | 2017-10-26 11:03 | HHI.CCPN ---
Subjective Remarks/Hospital Course 76-year-old male presents for evaluation of generalized weakness. Patient was noted at home to be up out of bed to go to the bathroom because of generalized weakness he slipped to the floor landing on his knees bilaterally. Patient sustained superficial abrasions to the knees and was too weak to get up off of the floor by himself so knocked on the wall to get assistance from his who found him kneeling on the floor. EMS was called. Upon fire department arrival patient was placed on monitor and was identified to have ST elevation with QS pattern noted in lead 2 and aVF. He was given bolus of normal saline. Arrival to emergency department he was in sinus tachycardic rhythm with frequent unifocal PVCs but no ST elevation. PVCs decreased with further fluid hydration. Patient denies having any chest pain or shortness of breath. Denied any nausea or vomiting or referred neck jaw back shoulder arm or abdominal pain. Patient complains of bilateral knee pain secondary to landing on both knees and inability to stand secondary to knee pain and generalized weakness. No prior history of CAD or myocardial infarction. Patient does have history of hypertension dyslipidemia atrial fibrillation right bundle branch block chronic kidney disease and diabetes. Patient has chronic indwelling urinary catheter 1 year. Subjective: 10/25: Afebrile. No acute events overnight. Suprapubic catheter was changed by urology yesterday. Evaluation of bilateral knees via x-ray were negative. Patient tolerating diet. Home medications resumed. 10/26: During the night the patient became confused, requiring 2. wrist restraints. Patient received 2 mg of morphine 4 mg of Ativan during the night as well as trazodone and Ambien. All sedative type medications been discontinued. Possible ICU delirium, CT brain, ammonia level, electrolytes are pending. Objective Vital Signs Date Time Temp Pulse Resp B/P (MAP) Pulse Ox O2 Delivery O2 Flow Rate FiO2 10/26/17 08:00 74 10/26/17 08:00 98.2 15 136/63 (87) 87 10/26/17 04:05 Nasal Cannula 2.00 10/25/17 19:25 21 Intake and Output 10/26/17 10/26/17 10/27/17 08:00 16:00 00:00 Intake Total 1000 ml Output Total 1275 ml Balance -1275 ml 1000 ml Result Diagram: 10/26/17 1015 10/25/17 0340 Other Results Microbiology Date/Time Source Procedure Growth Status 10/24/17 03:40 Urine Random Urine Urine Culture - Final Escherichia Coli Klebsiella Oxytoca Complete Imaging Last Impressions Chest X-Ray 10/24/17 0335 Signed Impressions: Service Date/Time: Tuesday, October 24, 2017 03:41 - CONCLUSION: No acute cardiopulmonary disease identified. Aditya Madrigal MD Renal Ultrasound 10/24/17 0000 Signed Impressions: Service Date/Time: Tuesday, October 24, 2017 11:38 - CONCLUSION: 1. Right renal cysts otherwise unremarkable Alexander Farnsworth MD Knee X-Ray 10/24/17 0000 Signed Impressions: Service Date/Time: Tuesday, October 24, 2017 15:40 - CONCLUSION: 1. There is no evidence of acute fracture. Alexander Farnsworth MD Objective Remarks GENERAL: Well-developed well-nourished male in no acute distress no respiratory distress; GCS 14 SKIN: Warm and dry. HEAD: Normocephalic. Atraumatic. No scalp tenderness soft tissue swelling or bony abnormality. EYES: No scleral icterus. No injection or drainage. NECK: Supple, trachea midline. No JVD or lymphadenopathy. No midline tenderness to direct palpation along the cervical spine. CARDIOVASCULAR: Increased Regular rate and rhythm without murmurs, gallops, or rubs; occasional skipped beat. RESPIRATORY: Breath sounds equal bilaterally. No accessory muscle use. Clear to auscultation bilaterally. GASTROINTESTINAL: Abdomen soft, non-tender, nondistended. MUSCULOSKELETAL: No cyanosis, or edema. Bilateral knee pain without effusion or decreased range of motion or deformity noted bilateral abrasions. Bilateral radial and dorsalis pedis pulses 2+ to palpation. BACK: Nontender without obvious deformity. No CVA tenderness. NEURO: Alert awake oriented 3, no focal weakness. Patient confused alert to self only A/P Assessment and Plan Altered mental status/ICU delirium ? - Obtain ammonia level - Obtain CT brain - Discontinue all sedative type medications to include morphine, trazodone, Ambien - Maintain sleep hygiene, sleep-wake cycle-consider Haldol for agitation Sepsis Leukocytosis - UTI- E coli, Klebsiella - Panculture - Continue Broad-spectrum antibiotics-leukocytosis resolving. Follow-up CBC - De-escalate per sensitivity - Suprapubic catheter Diabetes mellitus - Insulin sliding scale - ADA 1800-calorie diet Lactic acidosis-resolved - Due to above - Monitor trend - Discontinue IV fluids, Heplock IV Abnormal EKG per EMS - 2-D echo-EF 60-65%, trace TR, trace MR, no RWMA, PAP 39 - Series of EKGs and troponins DVT GI prophylaxis - Teds SCDs - Subcutaneous heparin - Pepcid PT evaluation and treat Dispo: Level 2 follow up Plan transfer [facility] floor. [facility]up lab and imaging studies Physician Patricia Aleman MD Oct 26, 2017 11:03
[2017-10-26 11:05] LABS: CREATININE 0.72 MG/DL (0.60-1.30)
[2017-10-26 11:55] LABS: HEMATOCRIT 36.3 % (39.0-51.0); HEMOGLOBIN 12.4 GM/DL (13.0-17.0); MEAN CELL VOLUME 91.1 FL (80.0-100.0); MEAN CORPUSCULAR HEMOGLOBIN 31.2 PG (27.0-34.0); MEAN CORPUSCULAR HGB CONC 34.2 % (32.0-36.0); PLATELET COUNT 192 TH/MM3 (150-450); RED BLOOD COUNT 3.98 MIL/MM3 (4.50-5.90); RED CELL DISTRIBUTION WIDTH 13.4 % (11.6-17.2); WHITE BLOOD COUNT 8.4 TH/MM3 (4.0-11.0)
--- NOTE | 2017-10-26 12:00 | RADRPT ---
EXAM DATE/TIME: 10/26/2017 11:40 [facility] COMPARISON: No previous studies available for comparison. INDICATIONS : Altered mental status. RADIATION DOSE: 56.35 CTDIvol (mGy) MEDICAL HISTORY : Cardiovascular disease. Diabetes mellitus type 2. SURGICAL HISTORY : None. ENCOUNTER: Initial ACUITY: 1 day PAIN SCALE: 0/10 LOCATION: cranial TECHNIQUE: Multiple contiguous axial images were obtained of the head. Using automated exposure control and adj ustment of the mA and/or kV according to patient size, radiation dose was kept as low as reasonably a chievable to obtain optimal diagnostic quality images. DICOM format image data is available electro nically for review and comparison. FINDINGS: CEREBRUM: The ventricles are normal for age with moderate atrophic change. Periventricular white matter lucenci es are noted characteristic of chronic small vessel ischemic change. No evidence of midline shift, ma ss lesion, hemorrhage or acute infarction. No extra-axial fluid collections are seen. POSTERIOR FOSSA: The cerebellum and brainstem are intact. The 4th ventricle is midline. The cerebellopontine angle i s unremarkable. EXTRACRANIAL: The visualized portion of the orbits is intact. SKULL: The calvaria is intact. No evidence of skull fracture. CONCLUSION: 1. No acute hemorrhage, mass or evidence of infarction. 2. Atrophy and chronic small vessel ischemic changes. Darvin Segovia MD on October 26, 2017 at 11:57 Board Certified Radiologist. This report was verified electronically.
[2017-10-26 12:10] LABS: BICARBONATE 25.1 MEQ/L (21.0-32.0); CALCIUM 8.1 MG/DL (8.5-10.1); CREATININE 0.78 MG/DL (0.60-1.30); MAGNESIUM 2.1 MG/DL (1.5-2.5); PHOSPHORUS 1.9 MG/DL (2.5-4.9)
--- NOTE | 2017-10-26 12:15 | RADRPT ---
EXAM DATE/TIME: 10/26/2017 12:00 [facility] COMPARISON: CHEST SINGLE AP, October 24, 2017, 3:41. INDICATIONS : Short of breath MEDICAL HISTORY : Cardiovascular disease. Diabetes mellitus type II. SURGICAL HISTORY : None. ENCOUNTER: Subsequent ACUITY: 3 days PAIN SCORE: 0/10 LOCATION: chest FINDINGS: A single view of the chest demonstrates no focal consolidation. No effusion. No pneumothorax. Heart s ize normal. Tortuous aorta. CONCLUSION: 1. No acute findings. Say Appiah MD on October 26, 2017 at 12:11 Board Certified Radiologist. This report was verified electronically.
[2017-10-26] MEDS: VANCOMYCIN INJ 1,500 MG in SODIUM CHLORID 0.9% 500 ML INJ 500 ML IV SCH (14:56)
--- NOTE | 2017-10-26 16:26 | PQ ---
Physician Query Response Document PATIENT: HARSHAL DELATORRE : 1940 ADMIT DATE: 10/24/2017 4:59 AM DISCH DATE: RESPONDING PROVIDER #: [place] QUERY TEXT: Cause and Effect Relationship Please clarify in documentation the relationship, if any, between UTI and INDWELLING SUPRAPUBIC CATHETER Such as: -- Conditions are due to or associated -- Unrelated to each other -- Other, please specify PLEASE CALL [facility] [id number] FOR ASSISTANCE, THANK YOU! The patient's Clinical Indicators include: PER PROGRESS NOTE: Sepsis Leukocytosis - Likely urinary tract origin - Panculture - Continue Broad-spectrum antibiotics-leukocytosis resolving - De-escalate per sensitivity - Suprapubic catheter PER UROLOGY: He has had the Suprapubic Catheter for over 6 months Query created by: Milvia Kolb on 10/25/2017 11:25 AM RESPONSE TEXT: Pt with UTI due to indwelling suprapubic catheter as a result of neurogenic bladder Electronically signed by: Patricia Lawton MD 10/26/2017 4:21 PM
[2017-10-27] VITALS (10 sets, daily range): BP systolic 133–154; BP diastolic 65–89; PULSE 56–112; RESP 17–18; TEMP 98.3–99.2; O2SAT 96–98
[2017-10-27] MEDS: CEFEPIME INJ 2,000 MG in SODIUM CHLORIDE 0.9% INJ 100 ML IV SCH ×3 (00:35→15:44)
[2017-10-27] MEDS: VANCOMYCIN INJ 1,500 MG in SODIUM CHLORID 0.9% 500 ML INJ 500 ML IV SCH ×2 (01:38→13:01)
[2017-10-27] MEDS: CHLORHEXIDINE GLUCONATE 2 % 1 PACK (2 CLOTHS) TOP SCH (03:08)
[2017-10-27] MEDS ORDERED: HALOPERIDOL LACTATE 5 MG/ML AMP IV PUSH ONE (04:00)
[2017-10-27] MEDS: HEPARIN SODIUM - SQ 10,000 UNITS/ML VIAL SQ SCH ×3 (06:23→22:05)
[2017-10-27] MEDS: SODIUM CHLORIDE 0.9% FLUSH 10 ML FLUSH IV FLUSH SCH ×2 (09:08→21:00)
[2017-10-27] MEDS: DOCUSATE SODIUM 50 MG/SENNA 8.6 MG TAB PO SCH ×2 (09:08→21:00)
[2017-10-27] MEDS: INSULIN NovoLIN REGULAR SUPPLEMENTAL SCALE SQ SCH ×4 (09:08→22:02)
[2017-10-27] MEDS: FAMOTIDINE 20 MG/2 ML VIAL IV PUSH SCH ×2 (09:08→22:04)
[2017-10-27 10:18] LABS: HEMATOCRIT 34.9 % (39.0-51.0); HEMOGLOBIN 11.7 GM/DL (13.0-17.0); MEAN CELL VOLUME 90.8 FL (80.0-100.0); MEAN CORPUSCULAR HEMOGLOBIN 30.5 PG (27.0-34.0); MEAN CORPUSCULAR HGB CONC 33.6 % (32.0-36.0); MEAN PLATELET VOLUME 8.6 FL (7.0-11.0); PLATELET COUNT 187 TH/MM3 (150-450); RED BLOOD COUNT 3.84 MIL/MM3 (4.50-5.90); RED CELL DISTRIBUTION WIDTH 13.1 % (11.6-17.2); WHITE BLOOD COUNT 7.7 TH/MM3 (4.0-11.0)
[2017-10-27 10:41] LABS: BICARBONATE 22.8 MEQ/L (21.0-32.0); CALCIUM 8.2 MG/DL (8.5-10.1); CREATININE 0.77 MG/DL (0.60-1.30); MAGNESIUM 2.1 MG/DL (1.5-2.5)
[2017-10-27 10:42] LABS: PHOSPHORUS 2.6 MG/DL (2.5-4.9)
[2017-10-27] MEDS: SODIUM CHLOR 0.9% 1000 ML INJ 1,000 ML IV SCH (15:44)
--- NOTE | 2017-10-27 19:44 | HHI.PR ---
Subjective Remarks Patient was agitated and confused in am, now patient is off restraints and less confused. Patient had to be administered Haldol once in am. Objective Vitals Vital Signs Date Time Temp Pulse Resp B/P (MAP) Pulse Ox O2 Delivery O2 Flow Rate FiO2 10/27/17 16:12 98.3 79 18 151/85 (107) 97 10/27/17 16:00 92 10/27/17 13:30 99.1 56 17 133/89 (104) 98 10/27/17 12:23 98.8 97 18 148/67 (94) 96 10/27/17 12:00 85 10/27/17 08:12 98.6 62 18 134/72 (92) 96 10/27/17 08:00 75 10/27/17 04:00 112 10/27/17 04:00 98.9 92 18 154/68 (96) 97 10/27/17 00:00 99.2 90 18 139/65 (89) 96 10/27/17 00:00 94 10/26/17 21:18 97 21 10/26/17 20:00 98.8 94 18 126/57 (80) 99 10/26/17 20:00 96 I/O 10/26/17 10/26/17 10/26/17 10/27/17 10/27/17 10/27/17 07:00 15:00 23:00 07:00 15:00 23:00 Intake Total 100 ml 1100 ml 240 ml 855 ml 720 ml Output Total 1275 ml 1700 ml 1300 ml 3550 ml Balance -1175 ml 1100 ml -1460 ml -445 ml -2830 ml Intake Oral 240 ml 240 ml 720 ml IV Total 100 ml 1100 ml 615 ml Output Urine Total 1275 ml 1700 ml 1300 ml 3550 ml # Voids 1 # Bowel Movements 0 0 0 1 Result Diagram: 10/27/17 0820 10/27/17 0820 Imaging Last Impressions Head CT 10/26/17 0000 Signed Impressions: Service Date/Time: Thursday, October 26, 2017 11:40 - CONCLUSION: 1. No acute hemorrhage, mass or evidence of infarction. 2. Atrophy and chronic small vessel ischemic changes. Darvin Segovia MD Chest X-Ray 10/26/17 0000 Signed Impressions: Service Date/Time: Thursday, October 26, 2017 12:00 - CONCLUSION: 1. No acute findings. Say Appiah MD Renal Ultrasound 10/24/17 0000 Signed Impressions: Service Date/Time: Tuesday, October 24, 2017 11:38 - CONCLUSION: 1. Right renal cysts otherwise unremarkable Alexander Farnsworth MD Knee X-Ray 10/24/17 0000 Signed Impressions: Service Date/Time: Tuesday, October 24, 2017 15:40 - CONCLUSION: 1. There is no evidence of acute fracture. Alexander Farnsworth MD Objective Remarks GENERAL: Well-developed well-nourished male in no acute distress no respiratory distress; GCS 14. SKIN: Warm and dry. HEAD: Normocephalic. Atraumatic. No scalp tenderness soft tissue swelling or bony abnormality. EYES: No scleral icterus. No injection or drainage. NECK: Supple, trachea midline. No JVD or lymphadenopathy. No midline tenderness to direct palpation along the cervical spine. CARDIOVASCULAR: Increased Regular rate and rhythm without murmurs, gallops, or rubs; occasional skipped beat. RESPIRATORY: Breath sounds equal bilaterally. No accessory muscle use. Clear to auscultation bilaterally. GASTROINTESTINAL: Abdomen soft, non-tender, nondistended. MUSCULOSKELETAL: No cyanosis, or edema. Bilateral knee pain without effusion or decreased range of motion or deformity noted bilateral abrasions. Bilateral radial and dorsalis pedis pulses 2+ to palpation. BACK: Nontender without obvious deformity. No CVA tenderness. NEURO: Alert awake oriented 3, no focal weakness. Patient confused alert to self only Psych: Patient less agitated and answering appropriately to questions. A/P Problem List: (1) UTI (urinary tract infection) ICD Code: N39.0 - Urinary tract infection, site not specified Status: Acute (2) Sepsis ICD Code: A41.9 - Sepsis, unspecified organism Status: Acute Assessment and Plan Altered mental status/ICU delirium ? - Obtain ammonia level - Obtain CT brain - Discontinue all sedative type medications to include morphine, trazodone, Ambien - Maintain sleep hygiene, sleep-wake cycle-consider Haldol for agitation / sp Haldol for agitation, now off restraints. Ammonia level normal. CT head negative for acute process. Suspect altered mental status is due to metabolic encephalopathy due to sepsis. Encephalopathy is now much improved and resolving. Sepsis Leukocytosis - UTI- E coli, Klebsiella - Panculture - Continue Broad-spectrum antibiotics-leukocytosis resolving. Follow-up CBC - De-escalate per sensitivity - Suprapubic catheter 10/27 Dc Vancomycin IV and continue IV Cefepime. Diabetes mellitus - Insulin sliding scale - ADA 1800-calorie diet Lactic acidosis-resolved - Due to above - Monitor trend - resolved after IVF. Abnormal EKG per EMS - 2-D echo-EF 60-65%, trace TR, trace MR, no RWMA, PAP 39 - Series of EKGs and troponins DVT GI prophylaxis - Teds SCDs - Subcutaneous heparin - Pepcid PT evaluation and treat - will need PT at rehab facility. Discharge Planning Possible DC in am pending complete resolution of encephalopathy. Problem Qualifiers (1) UTI (urinary tract infection): Qualified Codes: T83.511A - Infection and inflammatory reaction due to indwelling urethral catheter, initial encounter; N39.0 - Urinary tract infection , site not specified (2) Sepsis: Qualified Codes: A41.9 - Sepsis, unspecified organism Jens Washington MD Oct 27, 2017 19:44
[2017-10-27] MEDS: BACITRACIN TOP OINT 15 GM TUBE TOPICAL SCH (22:02)
[2017-10-28] VITALS: BP 133/63; PULSE 75; PULSE 90; RESP 18; TEMP 98.4; O2SAT 94
[2017-10-28] MEDS ORDERED: BISACODYL 10 MG SUPP RECTAL PRN (01:45)
[2017-10-28] MEDS ORDERED: PHARMACY ORDERED LAB ONE (01:45)
[2017-10-28] MEDS: CEFEPIME INJ 2,000 MG in SODIUM CHLORIDE 0.9% INJ 100 ML IV SCH ×2 (02:57→09:30)
[2017-10-28 04:00] VITALS: BP 126/66; PULSE 74; RESP 16; TEMP 98.1; O2SAT 98
[2017-10-28] MEDS: CHLORHEXIDINE GLUCONATE 2 % 1 PACK (2 CLOTHS) TOP SCH (04:00)
[2017-10-28] MEDS: HEPARIN SODIUM - SQ 10,000 UNITS/ML VIAL SQ SCH ×3 (05:26→21:44)
[2017-10-28 08:00] VITALS: BP 163/73; PULSE 72; PULSE 76; RESP 18; TEMP 97.5; O2SAT 97
[2017-10-28] MEDS: DOCUSATE SODIUM 50 MG/SENNA 8.6 MG TAB PO SCH ×2 (09:31→21:45)
[2017-10-28] MEDS: FAMOTIDINE 20 MG/2 ML VIAL IV PUSH SCH ×2 (09:31→21:44)
[2017-10-28] MEDS: SODIUM CHLORIDE 0.9% FLUSH 10 ML FLUSH IV FLUSH SCH ×2 (09:31→21:46)
[2017-10-28] MEDS: INSULIN NovoLIN REGULAR SUPPLEMENTAL SCALE SQ SCH ×4 (09:31→21:00)
[2017-10-28] MEDS: BACITRACIN TOP OINT 15 GM TUBE TOPICAL SCH ×2 (09:31→21:45)
[2017-10-28] MEDS: ACETAMINOPHEN 325 MG TAB PO PRN ×2 (11:03→21:44)
[2017-10-28 11:48] LABS: BICARBONATE 24.5 MEQ/L (21.0-32.0); CALCIUM 8.3 MG/DL (8.5-10.1); CREATININE 0.7 MG/DL (0.60-1.30)
[2017-10-28 12:00] VITALS: BP 135/62; PULSE 78; PULSE 86; RESP 16; TEMP 98.4; O2SAT 97
[2017-10-28 12:15] LABS: HEMATOCRIT 36.9 % (39.0-51.0); HEMOGLOBIN 12.8 GM/DL (13.0-17.0); MEAN CORPUSCULAR HEMOGLOBIN 31.2 PG (27.0-34.0); MEAN CORPUSCULAR HGB CONC 34.6 % (32.0-36.0); MEAN PLATELET VOLUME 8.2 FL (7.0-11.0); PLATELET COUNT 223 TH/MM3 (150-450); WHITE BLOOD COUNT 5.7 TH/MM3 (4.0-11.0)
--- NOTE | 2017-10-28 13:30 | HHI.PR ---
Subjective Remarks Patient denies any complaints. Slight confusion on date but AAOx2 Denies cp/sob Afebrile. Sodium dropped. Objective Vitals Vital Signs Date Time Temp Pulse Resp B/P (MAP) Pulse Ox O2 Delivery O2 Flow Rate FiO2 10/28/17 11:00 Room Air 10/28/17 11:00 Room Air 10/28/17 09:00 Room Air 10/28/17 08:00 72 10/28/17 08:00 97.5 76 18 163/73 (103) 97 10/28/17 04:00 Room Air 10/28/17 04:00 98.1 74 16 126/66 (86) 98 10/28/17 00:00 90 10/28/17 00:00 Room Air 10/28/17 00:00 98.4 75 18 133/63 (86) 94 10/27/17 20:00 90 10/27/17 20:00 Room Air 10/27/17 16:12 98.3 79 18 151/85 (107) 97 10/27/17 16:00 92 10/27/17 13:30 99.1 56 17 133/89 (104) 98 I/O 10/27/17 10/27/17 10/27/17 10/28/17 10/28/17 10/28/17 07:00 15:00 23:00 07:00 15:00 23:00 Intake Total 855 ml 720 ml 440 ml Output Total 1300 ml 3550 ml 1000 ml Balance -445 ml -2830 ml -560 ml Intake Oral 240 ml 720 ml 240 ml IV Total 615 ml 200 ml Output Urine Total 1300 ml 3550 ml 1000 ml # Voids 1 # Bowel Movements 0 1 0 Result Diagram: 10/28/17 1021 10/28/17 1021 Imaging Last Impressions Head CT 10/26/17 0000 Signed Impressions: Service Date/Time: Thursday, October 26, 2017 11:40 - CONCLUSION: 1. No acute hemorrhage, mass or evidence of infarction. 2. Atrophy and chronic small vessel ischemic changes. Darvin Segovia MD Chest X-Ray 10/26/17 0000 Signed Impressions: Service Date/Time: Thursday, October 26, 2017 12:00 - CONCLUSION: 1. No acute findings. Say Appiah MD Renal Ultrasound 10/24/17 0000 Signed Impressions: Service Date/Time: Tuesday, October 24, 2017 11:38 - CONCLUSION: 1. Right renal cysts otherwise unremarkable Alexander Farnsworth MD Knee X-Ray 10/24/17 0000 Signed Impressions: Service Date/Time: Tuesday, October 24, 2017 15:40 - CONCLUSION: 1. There is no evidence of acute fracture. Alexander Farnsworth MD Objective Remarks GENERAL: Well-developed well-nourished male in no acute distress no respiratory distress; GCS 14. SKIN: Warm and dry. HEAD: Normocephalic. Atraumatic. No scalp tenderness soft tissue swelling or bony abnormality. EYES: No scleral icterus. No injection or drainage. NECK: Supple, trachea midline. No JVD or lymphadenopathy. No midline tenderness to direct palpation along the cervical spine. CARDIOVASCULAR: Increased Regular rate and rhythm without murmurs, gallops, or rubs; occasional skipped beat. RESPIRATORY: Breath sounds equal bilaterally. No accessory muscle use. Clear to auscultation bilaterally. GASTROINTESTINAL: Abdomen soft, non-tender, nondistended. MUSCULOSKELETAL: No cyanosis, or edema. Bilateral knee pain without effusion or decreased range of motion or deformity noted bilateral abrasions. Bilateral radial and dorsalis pedis pulses 2+ to palpation. BACK: Nontender without obvious deformity. No CVA tenderness. NEURO: Alert awake oriented 2, no focal weakness. Patient not alerted to place. Psych: Patient less agitated and answering appropriately to questions. Procedures none Medications and IVs Current Medications Medications (Trade) Dose Ordered Sig/Taryn Route Start Time Stop Time Status Last Admin (NS Flush) 2 ml UNSCH PRN IV FLUSH 10/24/17 05:45 (NS Flush) 2 ml BID IV FLUSH 10/24/17 09:00 10/28/17 09:31 (Tylenol) 650 mg Q6H PRN PO 10/24/17 05:45 10/28/17 11:03 (Pepcid Inj) 20 mg Q12HR IV PUSH 10/24/17 09:00 10/28/17 09:31 (Zofran Inj) 4 mg Q6H PRN IV PUSH 10/24/17 05:45 (Ambien) 5 mg HS PRN PO 10/24/17 05:45 10/25/17 23:47 (Duoneb Neb) 1 ampule Q2HR NEB PRN INH 10/24/17 05:45 (Heparin Inj) 5,000 units Q8H SQ 10/24/17 06:00 10/28/17 05:26 Miscellaneous Information 1 Q361D XX 10/24/17 05:45 10/24/17 05:45 (Chlorhexidine 2% Cloth) 3 pack Taper DAILY@04 TOP 10/25/17 04:00 10/21/18 03:59 10/26/17 04:00 (Chlorhexidine 2% Cloth) 3 pack UNSCH PRN TOP 10/24/17 05:45 (Savita-Colace) 1 tab BID PO 10/24/17 09:00 10/28/17 09:31 (Milk Of Magnesia Liq) 30 ml Q12H PRN PO 10/24/17 05:45 (Senokot) 17.2 mg Q12H PRN PO 10/24/17 05:45 (Dulcolax Supp) 10 mg DAILY PRN RECTAL 10/24/17 05:45 10/27/17 18:18 (Lactulose Liq) 30 ml DAILY PRN PO 10/24/17 05:45 10/27/17 14:04 (D50w (Vial) Inj) 50 ml UNSCH PRN IV PUSH 10/24/17 06:15 (Glucagon Inj) 1 mg UNSCH PRN OTHER 10/24/17 06:15 (NovoLIN R SUPPLEMENTAL SCALE) 1 ACHS SLIDING SCALE SQ 10/24/17 08:00 10/28/17 12:33 (Desyrel) 50 mg HS PO 10/24/17 21:00 Future Hold 10/25/17 22:03 (Norvasc) 10 mg DAILY PO 10/25/17 09:00 10/28/17 09:31 (Apresoline Inj) 20 mg Q4H PRN IV PUSH 10/24/17 20:30 10/26/17 16:36 (Trandate Inj) 10 mg Q4H PRN IV PUSH 10/24/17 20:30 10/24/17 20:48 (Baciguent Oint) 1 applic BID TOPICAL 10/27/17 21:00 10/28/17 09:31 (Dulcolax Supp) 10 mg DAILY PRN RECTAL 10/28/17 01:45 (Ceftin) 500 mg Q12HR PO 10/28/17 21:00 UNV A/P Problem List: (1) Sepsis ICD Code: A41.9 - Sepsis, unspecified organism Status: Resolved (2) UTI (urinary tract infection) ICD Code: N39.0 - Urinary tract infection, site not specified Status: Acute (3) Metabolic encephalopathy ICD Code: G93.41 - Metabolic encephalopathy Status: Resolved (4) Hyponatremia ICD Code: E87.1 - Hypo-osmolality and hyponatremia Status: Acute (5) Diabetes mellitus ICD Code: E11.9 - Type 2 diabetes mellitus without complications Status: Chronic Assessment and Plan Sepsis Leukocytosis Secondary to urinary tract infection due to indwelling suprapubic catheter as a result of neurogenic bladder. Urine culture grew Escherichia coli and Klebsiella. Blood cultures obtained and negative to date. The patient was started on IV broad-spectrum antibiotics which include IV vancomycin and IV cefepime. IV vancomycin was later discontinued and the patient was continued IV cefepime. The patient is more stable I will switch to oral cefuroxime. Metabolic encephalopathy CT of the brain was obtained and negative. Psychotropic medications discontinued including morphine, trazodone and Ambien. Montagne to sleep hygiene, sleep wake cycle. Patient required hospital for agitation. Due to agitation the patient needed to be restrained but these have been off for more than 24 hours. Ammonia level checked and normal. Encephalopathy resolving, the patient still not oriented to date. The patient could possibly have some residual encephalopathy from current hyponatremia. Continue to monitor neurological status. Diabetes mellitus type 2. The patient was placed on SSI with insulin NovoLog and placed on an 1800 ADA diet. 49 glipizide held on admission. I will resume. Continue SSI with insulin NovoLog. Lactic acidosis-resolved - Due to above - Monitor trend - resolved after IVF. Abnormal EKG per EMS - 2-D echo-EF 60-65%, trace TR, trace MR, no RWMA, PAP 39 -Troponin went up from 0.02-0.15 which trended down and was 0.06 on 10/25. Elevation of troponins likely secondary to demand ischemia. Patient is chest pain-free. DVT GI prophylaxis - Teds SCDs - Subcutaneous heparin - Pepcid Hyponatremia Acute on chronic hyponatremia. As per patient's the patient was on sodium chloride tablets as an outpatient. Sodium dropped from 132-126 in one day. I will follow restrict the patient with 1 L fluid restriction per day and start sodium chloride tablets. Check serum and urine osmolality. PT evaluation and treat - will need PT at rehab facility. Discharge Planning Encephalopathy much improved, however patient's sodium trended down significantly. The patient is not medically cleared to be discharge. Will discharge once sodium trends up to baseline. Problem Qualifiers (1) Sepsis: Qualified Codes: A41.9 - Sepsis, unspecified organism (2) UTI (urinary tract infection): Qualified Codes: T83.511A - Infection and inflammatory reaction due to indwelling urethral catheter, initial encounter; N39.0 - Urinary tract infection , site not specified (3) Diabetes mellitus: Jens Washington MD Oct 28, 2017 13:30
[2017-10-28] MEDS ORDERED: PILL SPLITTER OTHER PRN (14:45)
[2017-10-28] MEDS: SODIUM CHLORIDE 1 GRAM TAB PO SCH (14:54)
[2017-10-28] MEDS: metFORMIN HCL 500 MG TAB PO SCH ×2 (14:56→15:33)
[2017-10-28 16:00] VITALS: BP 146/71; PULSE 72; PULSE 77; RESP 18; TEMP 98.2; O2SAT 97
[2017-10-28] MEDS: glipiZIDE 5 MG TAB PO SCH (16:15)
[2017-10-28 20:00] VITALS: BP 160/71; PULSE 77; PULSE 83; RESP 18; TEMP 99; O2SAT 97
[2017-10-28] MEDS: ZOLPIDEM TARTRATE 5 MG TAB PO PRN (21:44)
[2017-10-28] MEDS: CEFUROXIME AXETIL 500 MG TAB PO SCH (21:44)
[2017-10-29] VITALS: BP 146/65; PULSE 80; PULSE 81; RESP 18; TEMP 98.8; O2SAT 98
[2017-10-29 04:00] VITALS: BP 142/69; PULSE 72; PULSE 73; RESP 18; TEMP 98.1; O2SAT 97
[2017-10-29] MEDS: CHLORHEXIDINE GLUCONATE 2 % 1 PACK (2 CLOTHS) TOP SCH (04:00)
[2017-10-29] MEDS: ACETAMINOPHEN 325 MG TAB PO PRN ×2 (06:42→21:32)
[2017-10-29] MEDS: glipiZIDE 5 MG TAB PO SCH ×2 (06:42→17:14)
[2017-10-29] MEDS: HEPARIN SODIUM - SQ 10,000 UNITS/ML VIAL SQ SCH ×3 (06:42→21:31)
[2017-10-29 08:00] VITALS: BP 134/67; PULSE 75; PULSE 77; RESP 20; TEMP 97.9; O2SAT 95
[2017-10-29] MEDS: SODIUM CHLORIDE 0.9% FLUSH 10 ML FLUSH IV FLUSH SCH ×2 (09:00→21:31)
[2017-10-29] MEDS: SODIUM CHLORIDE 1 GRAM TAB PO SCH ×2 (09:17→17:18)
[2017-10-29] MEDS: CEFUROXIME AXETIL 500 MG TAB PO SCH ×2 (09:17→21:31)
[2017-10-29] MEDS: metFORMIN HCL 500 MG TAB PO SCH ×2 (09:17→17:15)
[2017-10-29] MEDS: DOCUSATE SODIUM 50 MG/SENNA 8.6 MG TAB PO SCH ×2 (09:17→21:31)
[2017-10-29] MEDS: FAMOTIDINE 20 MG/2 ML VIAL IV PUSH SCH ×2 (09:17→21:31)
[2017-10-29] MEDS: BACITRACIN TOP OINT 15 GM TUBE TOPICAL SCH ×2 (09:18→21:31)
[2017-10-29] MEDS: INSULIN NovoLIN REGULAR SUPPLEMENTAL SCALE SQ SCH ×4 (09:18→21:00)
[2017-10-29 09:55] LABS: BICARBONATE 28.8 MEQ/L (21.0-32.0); CALCIUM 8.4 MG/DL (8.5-10.1); CREATININE 0.85 MG/DL (0.60-1.30)
[2017-10-29 12:00] VITALS: BP 152/67; PULSE 69; PULSE 74; RESP 20; TEMP 98.7; O2SAT 95
[2017-10-29] MEDS ORDERED: CEFU1TAB20 PO (14:24)
[2017-10-29] MEDS ORDERED: AMLO10 PO (14:24)
[2017-10-29] MEDS ORDERED: AMBI5TAB PO (14:24)
--- NOTE | 2017-10-29 14:25 | HHI.DCPOC ---
Discharge Care Plan Diagnosis: (1) UTI (urinary tract infection) (2) Frequent unifocal PVCs (3) Diabetes mellitus (4) Hyponatremia (5) Metabolic encephalopathy Goals to Promote Your Health * To prevent worsening of your condition and complications * To maintain your health at the optimal level Directions to Meet Your Goals Take your medications as prescribed Follow your dietary instruction Follow activity as directed Keep your appointments as scheduled Take your immunizations and boosters as scheduled If your symptoms worsen call your PCP, if no PCP go to Urgent Care Center or Emergency Room Smoking is Dangerous to Your Health. Avoid second hand smoke Call the 24-hour hour crisis hotline for domestic abuse at Jens Washington MD Oct 29, 2017 14:25
--- NOTE | 2017-10-29 14:30 | HHI.DS ---
Discharge Summary Admission Date Oct 24, 2017 at 04:59 Discharge Date: Oct 29, 2017 Admitting Diagnosis severe sepsis; uti; PVCs (1) Sepsis ICD Code: A41.9 - Sepsis, unspecified organism Status: Resolved (2) UTI (urinary tract infection) ICD Code: N39.0 - Urinary tract infection, site not specified Status: Acute (3) Metabolic encephalopathy ICD Code: G93.41 - Metabolic encephalopathy Status: Resolved (4) Hyponatremia ICD Code: E87.1 - Hypo-osmolality and hyponatremia Status: Acute (5) Diabetes mellitus ICD Code: E11.9 - Type 2 diabetes mellitus without complications Status: Chronic Procedures none Brief History - From Admission 76-year-old male presents for evaluation of generalized weakness. Patient was noted at home to be up out of bed to go to the bathroom because of generalized weakness he slipped to the floor landing on his knees bilaterally. Patient sustained superficial abrasions to the knees and was too weak to get up off of the floor by himself so knocked on the wall to get assistance from his who found him kneeling on the floor. EMS was called. Upon fire department arrival patient was placed on monitor and was identified to have ST elevation with QS pattern noted in lead 2 and aVF. He was given bolus of normal saline. Arrival to emergency department he was in sinus tachycardic rhythm with frequent unifocal PVCs but no ST elevation. PVCs decreased with further fluid hydration. Patient denies having any chest pain or shortness of breath. Denied any nausea or vomiting or referred neck jaw back shoulder arm or abdominal pain. Patient complains of bilateral knee pain secondary to landing on both knees and inability to stand secondary to knee pain and generalized weakness. No prior history of CAD or myocardial infarction. Patient does have history of hypertension dyslipidemia atrial fibrillation right bundle branch block chronic kidney disease and diabetes. Patient has chronic indwelling urinary catheter 1 year. CBC/BMP: 10/28/17 1021 10/29/17 0850 Significant Findings Laboratory Tests Test 10/27/17 08:20 10/28/17 10:21 10/28/17 21:56 10/28/17 22:20 Red Blood Count 3.84 MIL/MM3 (4.50-5.90) 4.10 MIL/MM3 (4.50-5.90) Hemoglobin 11.7 GM/DL (13.0-17.0) 12.8 GM/DL (13.0-17.0) Hematocrit 34.9 % (39.0-51.0) 36.9 % (39.0-51.0) Random Glucose 119 MG/DL (74-106) 194 MG/DL (74-106) Calcium Level 8.2 MG/DL (8.5-10.1) 8.3 MG/DL (8.5-10.1) Sodium Level 132 MEQ/L (136-145) 126 MEQ/L (136-145) Chloride Level 97 MEQ/L (98-107) 94 MEQ/L (98-107) Test 10/29/17 08:50 Random Glucose 215 MG/DL (74-106) Calcium Level 8.4 MG/DL (8.5-10.1) Sodium Level 128 MEQ/L (136-145) Chloride Level 93 MEQ/L (98-107) Estimat Glomerular Filtration Rate 88 ML/MIN (>89) Imaging Last Impressions Head CT 10/26/17 0000 Signed Impressions: Service Date/Time: Thursday, October 26, 2017 11:40 - CONCLUSION: 1. No acute hemorrhage, mass or evidence of infarction. 2. Atrophy and chronic small vessel ischemic changes. Darvin Segovia MD Chest X-Ray 10/26/17 0000 Signed Impressions: Service Date/Time: Thursday, October 26, 2017 12:00 - CONCLUSION: 1. No acute findings. Say Appiah MD Renal Ultrasound 10/24/17 0000 Signed Impressions: Service Date/Time: Tuesday, October 24, 2017 11:38 - CONCLUSION: 1. Right renal cysts otherwise unremarkable Alexander Farnsworth MD Knee X-Ray 10/24/17 0000 Signed Impressions: Service Date/Time: Tuesday, October 24, 2017 15:40 - CONCLUSION: 1. There is no evidence of acute fracture. Alexander Farnsworth MD PE at Discharge GENERAL: Well-developed well-nourished male in no acute distress no respiratory distress; GCS 14. SKIN: Warm and dry. HEAD: Normocephalic. Atraumatic. No scalp tenderness soft tissue swelling or bony abnormality. EYES: No scleral icterus. No injection or drainage. NECK: Supple, trachea midline. No JVD or lymphadenopathy. No midline tenderness to direct palpation along the cervical spine. CARDIOVASCULAR: Increased Regular rate and rhythm without murmurs, gallops, or rubs; occasional skipped beat. RESPIRATORY: Breath sounds equal bilaterally. No accessory muscle use. Clear to auscultation bilaterally. GASTROINTESTINAL: Abdomen soft, non-tender, nondistended. MUSCULOSKELETAL: No cyanosis, or edema. Bilateral knee pain without effusion or decreased range of motion or deformity noted bilateral abrasions. Bilateral radial and dorsalis pedis pulses 2+ to palpation. BACK: Nontender without obvious deformity. No CVA tenderness. NEURO: Alert awake oriented 2, no focal weakness. Patient not alerted to place. Psych: Patient less agitated and answering appropriately to questions. Pt update on day of discharge Patient is aaox3. Denies cp/sob. at bedside. Denies Fevers or chills, no dizziness. Pt Condition on Discharge: Stable Discharge Disposition: Discharge to SNF Discharge Time: > 30 minutes Discharge Instructions DIET: Follow Instructions for: Diabetic Diet Activities you can perform: Regular-No Restrictions, See Additionl Instruction Other Activity Instructions: OOB with assistance Follow up Referrals: PCP Follow-up New Medications: Amlodipine (Norvasc) 10 Mg Tab 10 MG PO DAILY for Blood Pressure Management, #31 TAB Cefuroxime (Cefuroxime) 500 Mg Tab 500 MG PO Q12HR for Infection, #8 TAB Zolpidem (Ambien) 5 Mg Tab 5 MG PO HS PRN for INSOMNIA for 10 Days, TAB Continued Medications: Aspirin (Aspirin) 81 Mg Chew 81 MG CHEW DAILY, TAB 0 Refills Coenzyme Q10 (Ubidecarenone) (Coq-10) 400 Mg Cap 1 TAB PO DAILY Glipizide (Glipizide) 5 Mg Tab 5 MG PO BIDAC for Blood Sugar Management, #60 TAB 0 Refills Take 30 minutes before a meal Metformin (Metformin) 1,000 Mg Tab 1000 MG PO BIDPC for Blood Sugar Management, #60 TAB 0 Refills Simvastatin (Simvastatin) 5 Mg Tab 5 MG PO DAILY for Cholesterol Management, #30 TAB 0 Refills Discontinued Medications: Trazodone (Trazodone) 100 Mg Tablet 100 MG PO HS for Control Depression, #30 TAB 0 Refills Jens Washington MD Oct 29, 2017 14:30
[2017-10-29] MEDS ORDERED: SODI1TAB PO (14:34)
[2017-10-29 16:00] VITALS: BP 138/65; PULSE 70; PULSE 75; RESP 20; TEMP 98.8; O2SAT 98
--- NOTE | 2017-10-29 19:50 | HHI.PR ---
Objective Vitals Vital Signs Date Time Temp Pulse Resp B/P (MAP) Pulse Ox O2 Delivery O2 Flow Rate FiO2 10/29/17 16:00 75 10/29/17 16:00 98.8 70 20 138/65 (89) 98 10/29/17 15:19 Room Air 10/29/17 12:27 Room Air 10/29/17 12:00 98.7 69 20 152/67 (95) 95 10/29/17 12:00 74 10/29/17 09:20 Room Air 10/29/17 08:00 77 10/29/17 08:00 97.9 75 20 134/67 (89) 95 10/29/17 04:00 98.1 72 18 142/69 (93) 97 10/29/17 04:00 73 10/29/17 03:54 Room Air 10/29/17 00:00 98.8 81 18 146/65 (92) 98 10/29/17 00:00 80 10/28/17 20:00 99.0 83 18 160/71 (100) 97 10/28/17 20:00 77 I/O 10/28/17 10/28/17 10/28/17 10/29/17 10/29/17 10/29/17 07:00 15:00 23:00 07:00 15:00 23:00 Intake Total 440 ml 840 ml 480 ml Output Total 1000 ml 1750 ml 1120 ml 1600 ml Balance -560 ml -910 ml -1120 ml -1120 ml Intake Oral 240 ml 840 ml 480 ml IV Total 200 ml Output Urine Total 1000 ml 1750 ml 1120 ml 1600 ml # Bowel Movements 0 2 1 Result Diagram: 10/28/17 1021 10/29/17 0850 Objective Remarks GENERAL: Well-developed well-nourished male in no acute distress no respiratory distress; GCS 14. SKIN: Warm and dry. HEAD: Normocephalic. Atraumatic. No scalp tenderness soft tissue swelling or bony abnormality. EYES: No scleral icterus. No injection or drainage. NECK: Supple, trachea midline. No JVD or lymphadenopathy. No midline tenderness to direct palpation along the cervical spine. CARDIOVASCULAR: Increased Regular rate and rhythm without murmurs, gallops, or rubs; occasional skipped beat. RESPIRATORY: Breath sounds equal bilaterally. No accessory muscle use. Clear to auscultation bilaterally. GASTROINTESTINAL: Abdomen soft, non-tender, nondistended. MUSCULOSKELETAL: No cyanosis, or edema. Bilateral knee pain without effusion or decreased range of motion or deformity noted bilateral abrasions. Bilateral radial and dorsalis pedis pulses 2+ to palpation. BACK: Nontender without obvious deformity. No CVA tenderness. NEURO: Alert awake oriented 2, no focal weakness. Patient not alerted to place. Psych: Patient less agitated and answering appropriately to questions. Procedures none A/P Problem List: (1) Sepsis ICD Code: A41.9 - Sepsis, unspecified organism Status: Resolved (2) UTI (urinary tract infection) ICD Code: N39.0 - Urinary tract infection, site not specified Status: Acute (3) Metabolic encephalopathy ICD Code: G93.41 - Metabolic encephalopathy Status: Resolved (4) Hyponatremia ICD Code: E87.1 - Hypo-osmolality and hyponatremia Status: Acute (5) Diabetes mellitus ICD Code: E11.9 - Type 2 diabetes mellitus without complications Status: Chronic Assessment and Plan Sepsis Leukocytosis Secondary to urinary tract infection due to indwelling suprapubic catheter as a result of neurogenic bladder. Urine culture grew Escherichia coli and Klebsiella. Blood cultures obtained and negative to date. The patient was started on IV broad-spectrum antibiotics which include IV vancomycin and IV cefepime. IV vancomycin was later discontinued and the patient was continued IV cefepime. The patient is more stable I will switch to oral cefuroxime. Metabolic encephalopathy CT of the brain was obtained and negative. Psychotropic medications discontinued including morphine, trazodone and Ambien. Bkagne to sleep hygiene, sleep wake cycle. Patient required hospital for agitation. Due to agitation the patient needed to be restrained but these have been off for more than 24 hours. Ammonia level checked and normal. Encephalopathy resolving, the patient still not oriented to date. The patient could possibly have some residual encephalopathy from current hyponatremia. Continue to monitor neurological status. Diabetes mellitus type 2. The patient was placed on SSI with insulin NovoLog and placed on an 1800 ADA diet. 49 glipizide held on admission. I will resume. Continue SSI with insulin NovoLog. Lactic acidosis-resolved - Due to above - Monitor trend - resolved after IVF. Abnormal EKG per EMS - 2-D echo-EF 60-65%, trace TR, trace MR, no RWMA, PAP 39 -Troponin went up from 0.02-0.15 which trended down and was 0.06 on 10/25. Elevation of troponins likely secondary to demand ischemia. Patient is chest pain-free. DVT GI prophylaxis - Teds SCDs - Subcutaneous heparin - Pepcid Hyponatremia Acute on chronic hyponatremia. As per patient's the patient was on sodium chloride tablets as an outpatient. Sodium dropped from 132-126 in one day. I will follow restrict the patient with 1 L fluid restriction per day and start sodium chloride tablets. Check serum and urine osmolality. PT evaluation and treat - will need PT at rehab facility. Discharge Planning Encephalopathy much improved, however patient's sodium trended down significantly. The patient is not medically cleared to be discharge. Will discharge once sodium trends up to baseline. Problem Qualifiers (1) Sepsis: Qualified Codes: A41.9 - Sepsis, unspecified organism (2) UTI (urinary tract infection): Qualified Codes: T83.511A - Infection and inflammatory reaction due to indwelling urethral catheter, initial encounter; N39.0 - Urinary tract infection , site not specified (3) Diabetes mellitus: Jens Washington MD Oct 29, 2017 19:50
[2017-10-29 20:00] VITALS: BP 151/67; PULSE 74; PULSE 77; RESP 16; TEMP 98.8; O2SAT 96
[2017-10-29] MEDS: ZOLPIDEM TARTRATE 5 MG TAB PO PRN (21:32)
[2017-10-30] VITALS: BP 159/85; PULSE 74; PULSE 78; RESP 16; TEMP 98.7; O2SAT 97
[2017-10-30 04:00] VITALS: BP 158/67; PULSE 79; PULSE 89; RESP 16; TEMP 98.3; O2SAT 97
[2017-10-30] MEDS: CHLORHEXIDINE GLUCONATE 2 % 1 PACK (2 CLOTHS) TOP SCH (04:00)
[2017-10-30] MEDS: HEPARIN SODIUM - SQ 10,000 UNITS/ML VIAL SQ SCH ×2 (04:58→13:33)
[2017-10-30] MEDS: ACETAMINOPHEN 325 MG TAB PO PRN (05:10)
[2017-10-30] MEDS: glipiZIDE 5 MG TAB PO SCH (05:11)
[2017-10-30 08:00] VITALS: BP 149/70; PULSE 79; RESP 18; TEMP 97.7; O2SAT 97
[2017-10-30] MEDS: INSULIN NovoLIN REGULAR SUPPLEMENTAL SCALE SQ SCH ×2 (08:51→12:00)
[2017-10-30] MEDS: CEFUROXIME AXETIL 500 MG TAB PO SCH (08:51)
[2017-10-30] MEDS: metFORMIN HCL 500 MG TAB PO SCH (08:52)
[2017-10-30] MEDS: DOCUSATE SODIUM 50 MG/SENNA 8.6 MG TAB PO SCH (08:52)
[2017-10-30] MEDS: SODIUM CHLORIDE 1 GRAM TAB PO SCH ×2 (08:52→13:33)
[2017-10-30] MEDS: FAMOTIDINE 20 MG/2 ML VIAL IV PUSH SCH (08:53)
[2017-10-30] MEDS: BACITRACIN TOP OINT 15 GM TUBE TOPICAL SCH (08:53)
[2017-10-30] MEDS: SODIUM CHLORIDE 0.9% FLUSH 10 ML FLUSH IV FLUSH SCH (08:53)
[2017-10-30 12:00] VITALS: BP 145/67; PULSE 74; RESP 18; TEMP 98.5; O2SAT 99
[2017-10-30 14:53] LABS: CALCIUM 8.4 MG/DL (8.5-10.1); CREATININE 0.89 MG/DL (0.60-1.30)
== END 2017-10-30 16:26 | DRG 698 ==
LOC: NEPC 03:20 → NEDA 04:59 → HIMN 06:45 → N04A 10-26 17:40
PROVIDERS: ADMIT Internal Medicine Critical Care Medicine; ATTEND Hospitalist
PROC: 0T2BX0Z Change Drainage Device in Bladder, External Approach (ICD-10-PCS; principal; 2017-10-24)
DX: T83.511A Infection and inflammatory reaction due to indwelling urethral catheter, initial encounter (principal); A41.9 Sepsis, unspecified organism; G93.41 Metabolic encephalopathy; E87.2 Acidosis; E87.1 Hypo-osmolality and hyponatremia; I24.8 Other forms of acute ischemic heart disease; N31.9 Neuromuscular dysfunction of bladder, unspecified; N39.0 Urinary tract infection, site not specified; R53.1 Weakness; B96.1 Klebsiella pneumoniae [K. pneumoniae] as the cause of diseases classified elsewhere; B96.20 Unspecified Escherichia coli [E. coli] as the cause of diseases classified elsewhere; K59.00 Constipation, unspecified; Y84.6 Urinary catheterization as the cause of abnormal reaction of the patient, or of later complication, without mention of misadventure at the time of the procedure; I49.3 Ventricular premature depolarization; S80.212A Abrasion, left knee, initial encounter; S80.211A Abrasion, right knee, initial encounter; E11.22 Type 2 diabetes mellitus with diabetic chronic kidney disease; E78.5 Hyperlipidemia, unspecified; I12.9 Hypertensive chronic kidney disease with stage 1 through stage 4 chronic kidney disease, or unspecified chronic kidney disease; I25.10 Atherosclerotic heart disease of native coronary artery without angina pectoris; I48.91 Unspecified atrial fibrillation; N18.9 Chronic kidney disease, unspecified; W18.30XA Fall on same level, unspecified, initial encounter; Y92.009 Unspecified place in unspecified non-institutional (private) residence as the place of occurrence of the external cause; Z87.891 Personal history of nicotine dependence; Z79.84 Long term (current) use of oral hypoglycemic drugs
CPT/HCPCS: 36600; 70450; 71045; 73560; 76775; 80048; 80053; 81001; 82140; 82550; 82552; 82565; 82805; 82948; 83605; 83735; 83880; 83930; 83935; 84100; 84484; 85025; 85027; 85610; 85730; 87040; 87077; 87086; 87186; 87641; 93005; 93306; 96361; 96374; J0360; J0692; J1630; J1644; J2060; J2270; J2543; J3370; J7030; J7040; J7050

== ENCOUNTER 2018-02-11 13:48 | Inpatient (IN) | payer OTHER, MEDICARE ==
[~2018-02-11] VITALS: Ht 177.8 cm; Wt 96.0 kg
[~2018-02-11 13:48] MED LIST changes: +AMBI5TAB PO; +AMLO10 PO; +ASPI-516 CHEW; -ASPI81TA82 PO; -BACT800T5 PO; +CEFU1TAB20 PO; -GLIP5 PO; +GLIP5TAB8 PO; -MISC1CAP2 PO; -OCUV PO; +SODI1TAB PO; -TAMS0.4C67 PO; -TRAZ100 PO; -XANA1TAB6 PO
[2018-02-11 13:57] VITALS: BP 121/65; PULSE 109; RESP 20; TEMP 100.1; O2SAT 95
[2018-02-11] MEDS ORDERED: SODIUM CHLOR 0.9% 1000 ML INJ 1,000 ML IV ONE ×5 (14:08→16:05)
[2018-02-11] MEDS ORDERED: SODIUM CHLOR 0.9% 1000 ML INJ 700 ML IV ONE (14:08)
[2018-02-11] MEDS ORDERED: ACETAMINOPHEN 325 MG TAB PO ONE (14:15)
[2018-02-11] MEDS ORDERED: ONDANSETRON HCL 4 MG/2 ML VIAL IV PUSH ONE (14:15)
--- NOTE | 2018-02-11 14:51 | RADRPT ---
EXAM DATE/TIME: 02/11/2018 14:30 [facility] COMPARISON: CHEST SINGLE AP, October 26, 2017, 12:00. INDICATIONS : Congestion. Fever. MEDICAL HISTORY : Hypertension. Diabetes mellitus type II. SURGICAL HISTORY : None. ENCOUNTER: Initial ACUITY: 1 week PAIN SCORE: 0/10 LOCATION: Bilateral chest FINDINGS: A single view of the chest demonstrates the lungs to be symmetrically aerated without evidence of mas s, infiltrate or effusion. The cardiomediastinal contours are unremarkable. Osseous structures are intact. CONCLUSION: Normal examination. Corey Schumacher MD on February 11, 2018 at 14:48 Board Certified Radiologist. This report was verified electronically.
--- NOTE | 2018-02-11 14:55 | PD ---
HPI Chief Complaint: Complaint Time Seen by Provider: 14:07 Travel History International Travel<30 days: No Contact w/Intl Traveler<30days: No Traveled to known affect area: No History of Present Illness HPI 77 YO M with PMH of DM, HTN, CKD, neurogenic bladder presents to the ED via EMS for evaluation of 1 day history of fever, dark and foul smelling urine. Per EMS the reports AMS. Patient is A&O x 4, answers questions appropriately. He denies CP, cough, SOB, abdominal pain, vomiting, changes in bowel habits, flank pain, back pain. He states that he took Tylenol this AM after measuring a temperature of 100.1 by oral thermometer at home. Suprapubic cath originally placed over [address] Jeffery. [facility] Past Medical History Atrial Fibrillation: Yes High Cholesterol: Yes Diabetes: Yes (TYPE II) Patient Takes Glucophage: No Diminished Hearing: Yes ([facility]) Genitourinary: Yes (UTI (04/21/16), navas cath due to bladder retention) Past Surgical History Abdominal Surgery: Yes (UMBILICAL HERNIA REPAIR, SUPRA PUBIC CATH ) Social History Alcohol Use: No (QUIT 1978) Tobacco Use: No (QUIT "A LONG TIME AGO") Substance Use: No Allergies-Medications (Allergen,Severity, Reaction): Coded Allergies: No Known Allergies (Verified Allergy, Unknown, 10/24/17) Reported Meds & Prescriptions Reported Meds & Active Scripts Active Sodium Chloride 1 Gram Tab 1 Gm PO BID Ambien (Zolpidem Tartrate) 5 Mg Tab 5 Mg PO HS PRN 10 Days Norvasc (Amlodipine Besylate) 10 Mg Tab 10 Mg PO DAILY Cefuroxime (Cefuroxime Axetil) 500 Mg Tab 500 Mg PO Q12HR Reported Simvastatin 5 Mg Tab 5 Mg PO DAILY Metformin (Metformin HCl) 1,000 Mg Tab 1,000 Mg PO BIDPC Glipizide 5 Mg Tab 5 Mg PO BIDAC Take 30 minutes before a meal Coq-10 (Coenzyme Q10 (Ubidecarenone)) 400 Mg Cap 1 Tab PO DAILY Aspirin 81 Mg Chew 81 Mg CHEW DAILY Review of Systems Except as stated in HPI: all other systems reviewed are Neg Physical Exam Narrative GENERAL: Well-nourished, well-developed white male in no acute distress. SKIN: Focused skin assessment warm/dry. Well-healed suprapubic catheter site in the abdomen without signs of infection. HEAD: Normocephalic. EYES: No scleral icterus. No injection or drainage. NECK: Supple, trachea midline. No JVD or lymphadenopathy. CARDIOVASCULAR: Regular rate and rhythm without murmurs, gallops, or rubs. RESPIRATORY: Breath sounds clear and equal bilaterally. No accessory muscle use. GASTROINTESTINAL: Abdomen soft, non-tender, nondistended. Active bowel sounds. MUSCULOSKELETAL: No cyanosis, or edema. BACK: Nontender without obvious deformity. No CVA tenderness. Data Data Last Documented VS Vital Signs Date Time Temp Pulse Resp B/P (MAP) Pulse Ox O2 Delivery O2 Flow Rate FiO2 02/11/18 13:57 100.1 109 20 121/65 (83) 95 Orders Orders Sepsis Workup Initiated (02/11/18 ) Complete Blood Count With Diff (02/11/18 14:08) Comprehensive Metabolic Panel (02/11/18 14:08) Lactic Acid Sepsis Protocol (02/11/18 14:08) Urinalysis - C+S If Indicated (02/11/18 14:08) Blood Culture (02/11/18 14:08) Chest, Single Ap (02/11/18 14:08) Blood Glucose (02/11/18 14:08) Ecg Monitoring (02/11/18 14:08) Iv Access Insert/Monitor (02/11/18 14:08) Oximetry (02/11/18 14:08) Acetaminophen (Tylenol) (02/11/18 14:15) Ondansetron Inj (Zofran Inj) (02/11/18 14:15) Sodium Chlor 0.9% 1000 Ml Inj (Ns 1000 M (02/11/18 14:08) Sodium Chlor 0.9% 1000 Ml Inj (Ns 1000 M (02/11/18 14:08) Sodium Chlor 0.9% 1000 Ml Inj (Ns 1000 M (02/11/18 14:08) Urine Culture (02/11/18 14:10) Piperacil-Tazo 4.5 Gm Premix (Zosyn 4.5 (02/11/18 15:31) Admit Order (Ed Use Only) (02/11/18 16:04) Amlodipine (Norvasc) (02/12/18 09:00) Aspirin Chew (Aspirin Chew) (02/12/18 09:00) Sodium Chloride (Sodium Chloride) (02/11/18 21:00) (Nf) Coenzyme Q10 (Ubidecarenone) (Coq-1 (02/12/18 09:00) Pravastatin (Pravachol) (02/12/18 09:00) Labs Laboratory Tests Test 02/11/18 14:10 02/11/18 14:15 Urine Color LIGHT-YELLOW Urine Turbidity HAZY Urine pH 6.0 Urine Specific [place] 1.015 Urine Protein 30 mg/dL Urine Glucose (UA) NEG mg/dL Urine Ketones NEG mg/dL Urine Occult Blood SMALL Urine Nitrite POS Urine Bilirubin NEG Urine Urobilinogen LESS THAN 2.0 MG/DL Urine Leukocyte Esterase LARGE Urine RBC 17 /hpf Urine WBC /hpf Urine WBC Clumps FEW Urine Bacteria MANY /hpf Microscopic Urinalysis Comment CATH-CULTURE IND White Blood Count 13.7 TH/MM3 Red Blood Count 4.27 MIL/MM3 Hemoglobin 12.9 GM/DL Hematocrit 37.9 % Mean Corpuscular Volume 88.8 FL Mean Corpuscular Hemoglobin 30.1 PG Mean Corpuscular Hemoglobin Concent 34.0 % Red Cell Distribution Width 13.2 % Platelet Count 211 TH/MM3 Mean Platelet Volume 8.1 FL Neutrophils (%) (Auto) 82.1 % Lymphocytes (%) (Auto) 7.3 % Monocytes (%) (Auto) 9.9 % Eosinophils (%) (Auto) 0.4 % Basophils (%) (Auto) 0.3 % Neutrophils # (Auto) 11.3 TH/MM3 Lymphocytes # (Auto) 1.0 TH/MM3 Monocytes # (Auto) 1.4 TH/MM3 Eosinophils # (Auto) 0.1 TH/MM3 Basophils # (Auto) 0.0 TH/MM3 CBC Comment DIFF FINAL Differential Comment Blood Urea Nitrogen 17 MG/DL Creatinine 0.93 MG/DL Random Glucose 100 MG/DL Total Protein 7.8 GM/DL Albumin 3.5 GM/DL Calcium Level 8.7 MG/DL Alkaline Phosphatase 77 U/L Aspartate Amino Transf (AST/SGOT) 13 U/L Alanine Aminotransferase (ALT/SGPT) 26 U/L Total Bilirubin 0.3 MG/DL Sodium Level 134 MEQ/L Potassium Level 3.9 MEQ/L Chloride Level 98 MEQ/L Carbon Dioxide Level 27.3 MEQ/L Anion Gap 9 MEQ/L Estimat Glomerular Filtration Rate 79 ML/MIN Lactic Acid Level 1.1 mmol/L MDM Medical Decision Making Medical Screen Exam Complete: Yes Emergency Medical Condition: Yes Differential Diagnosis UTI versus PNA versus metabolic derangement versus sepsis versus other Narrative Course 77 YO M with PMH of DM, HTN, CKD, neurogenic bladder presents to the ED via EMS for evaluation of 1 day history of fever, dark and foul smelling urine. Per EMS the reports AMS. Patient is A&O x 4, answers questions appropriately. Endorses fever at home. Suprapubic cath originally placed over [address] Jeffery. Temp 100.1, pulse 109, O2 sats 95% on room air on presentation. On exam this is a nontoxic-appearing white male in no acute distress. There is a suprapubic catheter in place with the insertion site well-healed without signs of infection. There is pale yellow urine in the collection bag. No tenderness to palpation of the abdomen. No CVA tenderness noted. IV was established. Sepsis fluid resuscitation was initiated. Patient was administered 650 Tylenol, 4 mg Zofran. CBC: WBC 13.7, neutrophilic predominant. Hemoglobin 12.9. CMP without concerning abnormality. Lactic acid 1.1. CXR: Normal exam per radiology read. UA: Hazy, small occult blood, nitrite positive, large leukocyte Estrace. Innumerable WBCs. Few WBC clumps. Culture indicated. Patient was administered IV Zosyn. Dr. Gtz discussed the results of the workup and the need for admission. Patient's agreeable to the plan. Dr. Shultz spoke with Dr. Ivy who agrees to accept the patient to the medicine service. Please see their notes for disposition. Sepsis Criteria SIRS Criteria (2 or more): Heart rate over 90, WBC > 40477, < 4000 or > 10% bands Sepsis Criteria (SIRS+source): Infect source susp/known Tanya Amin Feb 11, 2018 14:55
[2018-02-11 14:58] LABS: AUTOMATED NEUTROPHIL # 11.3 TH/MM3 (1.8-7.7); BASOPHIL % 0.3 % (0.0-2.0); EOSINOPHIL # 0.1 TH/MM3 (0-0.4); EOSINOPHIL % 0.4 % (0.0-4.0); HEMATOCRIT 37.9 % (39.0-51.0); HEMOGLOBIN 12.9 GM/DL (13.0-17.0); LYMPH % 7.3 % (9.0-44.0); MEAN CELL VOLUME 88.8 FL (80.0-100.0); MEAN CORPUSCULAR HEMOGLOBIN 30.1 PG (27.0-34.0); MEAN PLATELET VOLUME 8.1 FL (7.0-11.0); MONO % 9.9 % (0.0-8.0); MONOCYTE # 1.4 TH/MM3 (0-0.9); NEUT % 82.1 % (16.0-70.0); PLATELET COUNT 211 TH/MM3 (150-450); RED BLOOD COUNT 4.27 MIL/MM3 (4.50-5.90); RED CELL DISTRIBUTION WIDTH 13.2 % (11.6-17.2); WHITE BLOOD COUNT 13.7 TH/MM3 (4.0-11.0)
[2018-02-11 15:14] LABS: ALBUMIN 3.5 GM/DL (3.4-5.0); ALT (GPT) 26 U/L (12-78); AST (GOT) 13 U/L (15-37); BICARBONATE 27.3 MEQ/L (21.0-32.0); BLOOD UREA NITROGEN 17 MG/DL (7-18); CALCIUM 8.7 MG/DL (8.5-10.1); CHLORIDE 98 MEQ/L (98-107); CREATININE 0.93 MG/DL (0.60-1.30); GLOMERULAR FILTRATION RATE 79 ML/MIN (>89); GLUCOSE,RANDOM 100 MG/DL (74-106); SODIUM (NA) 134 MEQ/L (136-145)
[2018-02-11 15:16] LABS: ALKALINE PHOSPHATASE 77 U/L (45-117); TOTAL BILIRUBIN ADULT 0.3 MG/DL (0.2-1.0); TOTAL PROTEIN 7.8 GM/DL (6.4-8.2)
[2018-02-11 15:26] LABS: BACTERIA, URINE MANY /hpf; BILIRUBIN, URINE NEG (NEG); BLOOD, URINE SMALL (NEG); GLUCOSE,URINE NEG (NEG); KETONE, URINE NEG (NEG); NITRITE,URINE POS (NEG); URINE COLOR LIGHT-YELLOW (YELLW/STRAW); URINE LEUKOCYTE ESTERASE LARGE (NEG); WHITE BLOOD CELL CLUMPS FEW
[2018-02-11] MEDS ORDERED: PIPERACIL-TAZO 4.5 GM PREMIX 100 ML IV STA (15:31)
--- NOTE | 2018-02-11 15:59 | PD ---
Physical Exam Narrative GENERAL: 77-year-old male in no apparent distress SKIN: Focused skin assessment warm/dry. HEAD: Atraumatic. Normocephalic. EYES: Pupils equal and round. No scleral icterus. No injection or drainage. ENT: No nasal bleeding or discharge. Mucous membranes pink and moist. NECK: Trachea midline. CARDIOVASCULAR: Regular rate and rhythm. RESPIRATORY: No accessory muscle use. No increased effort MUSCULOSKELETAL: No obvious deformities. No clubbing. No cyanosis. NEUROLOGICAL: Awake. Moves all extremities. Normal speech. Data Data Last Documented VS Vital Signs Date Time Temp Pulse Resp B/P (MAP) Pulse Ox O2 Delivery O2 Flow Rate FiO2 02/11/18 13:57 100.1 109 20 121/65 (83) 95 Orders Orders Sepsis Workup Initiated (02/11/18 ) Complete Blood Count With Diff (02/11/18 14:08) Comprehensive Metabolic Panel (02/11/18 14:08) Lactic Acid Sepsis Protocol (02/11/18 14:08) Urinalysis - C+S If Indicated (02/11/18 14:08) Blood Culture (02/11/18 14:08) Chest, Single Ap (02/11/18 14:08) Blood Glucose (02/11/18 14:08) Ecg Monitoring (02/11/18 14:08) Iv Access Insert/Monitor (02/11/18 14:08) Oximetry (02/11/18 14:08) Acetaminophen (Tylenol) (02/11/18 14:15) Ondansetron Inj (Zofran Inj) (02/11/18 14:15) Sodium Chlor 0.9% 1000 Ml Inj (Ns 1000 M (02/11/18 14:08) Sodium Chlor 0.9% 1000 Ml Inj (Ns 1000 M (02/11/18 14:08) Sodium Chlor 0.9% 1000 Ml Inj (Ns 1000 M (02/11/18 14:08) Urine Culture (02/11/18 14:10) Piperacil-Tazo 4.5 Gm Premix (Zosyn 4.5 (02/11/18 15:31) Admit Order (Ed Use Only) (02/11/18 16:04) Amlodipine (Norvasc) (02/12/18 09:00) Aspirin Chew (Aspirin Chew) (02/12/18 09:00) Sodium Chloride (Sodium Chloride) (02/11/18 21:00) (Nf) Coenzyme Q10 (Ubidecarenone) (Coq-1 (02/12/18 09:00) (Nf) Simvastatin (02/12/18 09:00) Admit To Inpatient (02/11/18 ) Code Status (02/11/18 16:05) Vital Signs (Adult) Q4H (02/11/18 16:05) Activity Oob With Assistance (02/11/18 16:05) Bedside Glucose LORENZA.CSUGAR (02/11/18 16:05) Payroll Specialist / Telemetry .CONTINUOUS (02/11/18 16:05) Intake + Output LORENZA.QSHIFT (02/11/18 16:05) Diet 1800 Ada Cons Carb (02/11/18 Dinner) Sodium Chlor 0.9% 1000 Ml Inj (Ns 1000 M (02/11/18 16:05) Sodium Chloride 0.9% Flush (Ns Flush) (02/11/18 16:15) Sodium Chloride 0.9% Flush (Ns Flush) (02/11/18 21:00) Acetaminophen (Tylenol) (02/11/18 16:15) Ondansetron Inj (Zofran Inj) (02/11/18 16:15) Metoclopramide Inj (Reglan Inj) (02/11/18 16:15) Creatine Kinase (Cpk) (02/11/18 16:05) Creatine Kinase (Cpk) (02/11/18 22:05) Troponin I (02/11/18 16:05) Troponin I (02/11/18 22:05) Electrocardiogram (02/11/18 16:05) Electrocardiogram (02/11/18 22:05) Resp Oxygen Bradley C Titrat 1-4 L (02/11/18 ) Pt Request For Service (02/11/18 16:05) Ot Request For Service (02/11/18 16:05) Case Management Consult (02/11/18 16:05) Enoxaparin Inj (Lovenox Inj) (02/11/18 16:15) Acetaminophen (Tylenol) (02/11/18 16:15) Oxycodone-Acetamin 5-325 Mg (Percocet (02/11/18 16:15) Oxycodone-Acetamin 10-325 Mg (Percocet 1 (02/11/18 16:15) Morphine Inj (Morphine Inj) (02/11/18 16:15) Morphine Inj (Morphine Inj) (02/11/18 16:15) Morphine Inj (Morphine Inj) (02/11/18 16:15) Naloxone Inj (Narcan Inj) (02/11/18 16:15) Docusate Sodium-Senna (Savita-Colace) (02/11/18 21:00) Magnesium Hydroxide Liq (Milk Of Magnesi (02/11/18 16:15) Sennosides (Senokot) (02/11/18 16:15) Bisacodyl Supp (Dulcolax Supp) (02/11/18 16:15) Lactulose Liq (Lactulose Liq) (02/11/18 16:15) Vital Signs (Adult) LORENZA.Q4H (02/11/18 16:05) Neuro Checks . ORDERED (02/11/18 16:05) Intake + Output 06,14,22 (02/11/18 16:05) Sodium Chloride 0.9% Flush (Ns Flush) (02/11/18 16:15) Sodium Chloride 0.9% Flush (Ns Flush) (02/11/18 21:00) Pantoprazole (Protonix) (02/12/18 09:00) Lactic Acid Sepsis Protocol (02/11/18 16:05) Consult Pt Eval & Treat (02/11/18 16:05) Ot Request For Service (02/11/18 16:05) Case Management Consult (02/11/18 ) Piperacil-Tazo 4.5 Gm Premix (Zosyn 4.5 (02/11/18 16:15) Vancomycin Inj (Vancomycin Inj) (02/11/18 16:15) Vancomycin Consult Pharmacy (Vancomycin (02/11/18 16:15) Sodium Chlor 0.9% 1000 Ml Inj (Ns 1000 M (02/11/18 16:05) Sodium Chlor 0.9% 1000 Ml Inj (Ns 1000 M (02/11/18 16:05) Sodium Chlor 0.9% 1000 Ml Inj (Ns 1000 M (02/11/18 16:05) Inpatient Certification (02/11/18 ) (Hub Use Only)Inp Phy Cons/Ref (02/11/18 ) Labs Laboratory Tests Test 02/11/18 14:10 02/11/18 14:15 Urine Color LIGHT-YELLOW Urine Turbidity HAZY Urine pH 6.0 Urine Specific [place] 1.015 Urine Protein 30 mg/dL Urine Glucose (UA) NEG mg/dL Urine Ketones NEG mg/dL Urine Occult Blood SMALL Urine Nitrite POS Urine Bilirubin NEG Urine Urobilinogen LESS THAN 2.0 MG/DL Urine Leukocyte Esterase LARGE Urine RBC 17 /hpf Urine WBC /hpf Urine WBC Clumps FEW Urine Bacteria MANY /hpf Microscopic Urinalysis Comment CATH-CULTURE IND White Blood Count 13.7 TH/MM3 Red Blood Count 4.27 MIL/MM3 Hemoglobin 12.9 GM/DL Hematocrit 37.9 % Mean Corpuscular Volume 88.8 FL Mean Corpuscular Hemoglobin 30.1 PG Mean Corpuscular Hemoglobin Concent 34.0 % Red Cell Distribution Width 13.2 % Platelet Count 211 TH/MM3 Mean Platelet Volume 8.1 FL Neutrophils (%) (Auto) 82.1 % Lymphocytes (%) (Auto) 7.3 % Monocytes (%) (Auto) 9.9 % Eosinophils (%) (Auto) 0.4 % Basophils (%) (Auto) 0.3 % Neutrophils # (Auto) 11.3 TH/MM3 Lymphocytes # (Auto) 1.0 TH/MM3 Monocytes # (Auto) 1.4 TH/MM3 Eosinophils # (Auto) 0.1 TH/MM3 Basophils # (Auto) 0.0 TH/MM3 CBC Comment DIFF FINAL Differential Comment Blood Urea Nitrogen 17 MG/DL Creatinine 0.93 MG/DL Random Glucose 100 MG/DL Total Protein 7.8 GM/DL Albumin 3.5 GM/DL Calcium Level 8.7 MG/DL Alkaline Phosphatase 77 U/L Aspartate Amino Transf (AST/SGOT) 13 U/L Alanine Aminotransferase (ALT/SGPT) 26 U/L Total Bilirubin 0.3 MG/DL Sodium Level 134 MEQ/L Potassium Level 3.9 MEQ/L Chloride Level 98 MEQ/L Carbon Dioxide Level 27.3 MEQ/L Anion Gap 9 MEQ/L Estimat Glomerular Filtration Rate 79 ML/MIN Lactic Acid Level 1.1 mmol/L MDM Supervised Visit with MARILOU: Yes Interpretation(s) CBC & BMP Diagram 02/11/18 14:15 Total Protein 7.8, Albumin 3.5, Calcium Level 8.7, Alkaline Phosphatase 77, Aspartate Amino Transf (AST/SGOT) 13 L, Alanine Aminotransferase (ALT/SGPT) 26, Total Bilirubin 0.3 Last 24 hours Impressions Chest X-Ray 02/11/18 1408 Signed Impressions: Service Date/Time: Sunday, February 11, 2018 14:30 - CONCLUSION: Normal examination. Corey Schumacher MD Narrative Course I, Dr. benavides, have reviewed the advance practice practitioner's documentation and am in agreement, met with the patient face to face, made the diagnosis, and the medical decision making was done by me. *My assessment and Findings: 77 y/o male presents with fever, dark urine and not acting himself. Workup reveals urinary tract infection with associated leukocytosis. He has a suprapubic catheter that recently got changed. He will be given Zosyn and closely monitored. Sepsis Criteria SIRS Criteria (2 or more): Heart rate over 90, WBC > 28106, < 4000 or > 10% bands Sepsis Criteria (SIRS+source): Infect source susp/known Criteria Outcome: Meets sepsis criteria Physician Communication Physician Communication Dr. Ivy agrees to admission Diagnosis Primary Impression: Sepsis Qualified Codes: A41.9 - Sepsis, unspecified organism Additional Impression: UTI (urinary tract infection) Qualified Codes: N39.0 - Urinary tract infection, site not specified Admitting Information Admitting Physician Requests: Admit Isidra Benavides MD Feb 11, 2018 15:59
[2018-02-11] MEDS ORDERED: SODIUM CHLORIDE 0.9% FLUSH 10 ML FLUSH IV FLUSH PRN ×2 (16:15)
[2018-02-11] MEDS ORDERED: NALOXONE HCL 0.4 MG/ML AMP IV PUSH PRN (16:15)
[2018-02-11] MEDS ORDERED: VANCOMYCIN INJ 1,000 MG in SODIUM CHLOR 0.9% 250 ML INJ 250 ML IV ONE (16:15)
[2018-02-11] MEDS ORDERED: ACETAMINOPHEN 325 MG TAB PO PRN (16:15)
[2018-02-11] MEDS ORDERED: LACTULOSE SYRUP 20 GM/30 ML CUP PO PRN (16:15)
[2018-02-11] MEDS ORDERED: MORPHINE SULFATE 2 MG/ML SYRINGE IV PUSH PRN ×3 (16:15)
[2018-02-11] MEDS ORDERED: oxyCODONE/ACETAMINOPHEN 5 MG/325 MG TAB PO PRN (16:15)
[2018-02-11] MEDS ORDERED: BISACODYL 10 MG SUPP RECTAL PRN (16:15)
[2018-02-11] MEDS ORDERED: ONDANSETRON HCL 4 MG/2 ML VIAL IVP PRN (16:15)
[2018-02-11] MEDS ORDERED: MAGNESIUM HYDROXIDE SUSP 30 ML CUP PO PRN (16:15)
[2018-02-11] MEDS ORDERED: Vancomycin Consult Pharmacy 1 EA OTHER SCH (16:15)
[2018-02-11] MEDS ORDERED: METOCLOPRAMIDE HCL 10 MG/2 ML VIAL IV PUSH PRN (16:15)
[2018-02-11] MEDS ORDERED: oxyCODONE/ACETAMINOPHEN 10 MG/325 MG TAB PO PRN (16:15)
[2018-02-11] MEDS ORDERED: SENNOSIDES 8.6 MG TAB PO PRN (16:15)
[2018-02-11 16:31] VITALS: BP 112/58; PULSE 93; RESP 17; TEMP 98.6; O2SAT 95
[2018-02-11 16:33] VITALS: RESP 19; O2SAT 98
[2018-02-11] MEDS ORDERED: GLUCAGON 1 MG/ML VIAL OTHER PRN (17:00)
[2018-02-11] MEDS: INSULIN ASPART SUPPLEMENTAL SCALE SQ SCH ×2 (17:00→21:07)
[2018-02-11] MEDS ORDERED: DEXTROSE 50% IN WATER 50 ML VIAL(D50) IV PUSH PRN (17:00)
--- NOTE | 2018-02-11 18:04 | HHI.HP ---
HPI Service [facility] Primary Care Physician Gary Zayas MD Admission Diagnosis sepsis, uti Diagnoses: Chief Complaint: Urinary tract infection, confusion, weakness Travel History International Travel<30 Days: No Contact w/Intl Traveler <30 Da: No Traveled to Known Affected Are: No Sepsis Criteria SIRS Criteria (2 or more): Heart rate over 90, WBC > 58338, < 4000 or > 10% bands Sepsis Criteria (SIRS+source): Infect source susp/known Criteria Outcome: Meets SIRS criteria, Meets sepsis criteria History of Present Illness Patient is a 77-year-old male with primary medical history of type 2 diabetes, HLD, chronic back pain, urinary retention, suprapubic catheter secondary to neurogenic bladder who came into the hospital for complaints of not feeling well , burning sensation, bladder spasms 2 days. Patient states that his catheter was just replaced Wednesday at Dr. Jeffery's office. at the bedside. Reports that he has increasing confusion, weakness. Patient states he almost fell and thought that this has something to do with urinary infection. Reports catheter maintenance at home is done by him and his . He usually changes the bag daily. Patient states he has a leg bag so that he is able to walk around during the daytime and uses the regular big bag when he goes to bed. States they maintain a good clean technique when changing bags. Denies pain and discomfort. Denies SOB/ dyspnea. Denies chest pain, palpitations, headaches, dizziness. Denies fevers, chills, n/v/d. Denies hematuria. Review of Systems Except as stated in HPI: all other systems reviewed are Neg Past Family Social History Past Medical History Type 2 diabetes Depression HTN HLD Insomnia Chronic back pain Umbilical hernia Chronic hyponatremia Neurogenic bladder Past Surgical History Umbilical hernia repair Suprapubic catheterization placement URO Lift Reported Medications Reported Meds & Active Scripts Active Sodium Chloride 1 Gram Tab 1 Gm PO BID Ambien (Zolpidem Tartrate) 5 Mg Tab 5 Mg PO HS PRN 10 Days Norvasc (Amlodipine Besylate) 10 Mg Tab 10 Mg PO DAILY Cefuroxime (Cefuroxime Axetil) 500 Mg Tab 500 Mg PO Q12HR Reported Simvastatin 5 Mg Tab 5 Mg PO DAILY Metformin (Metformin HCl) 1,000 Mg Tab 1,000 Mg PO BIDPC Glipizide 5 Mg Tab 5 Mg PO BIDAC Take 30 minutes before a meal Coq-10 (Coenzyme Q10 (Ubidecarenone)) 400 Mg Cap 1 Tab PO DAILY Aspirin 81 Mg Chew 81 Mg CHEW DAILY Allergies: Coded Allergies: No Known Allergies (Verified Allergy, Unknown, 10/24/17) Active Ordered Medications Current Medications Medications (Trade) Dose Ordered Sig/Taryn Route Start Time Stop Time Status Last Admin (Norvasc) 10 mg DAILY PO 02/12/18 09:00 (Aspirin Chew) 81 mg DAILY CHEW 02/12/18 09:00 (Sodium Chloride) 1 gm BID PO 02/11/18 21:00 (Pravachol) 10 mg DAILY PO 02/12/18 09:00 Sodium Chloride 1,000 ml @ 150 mls/hr Q6H40M IV 02/11/18 16:05 (NS Flush) 2 ml UNSCH PRN IV FLUSH 02/11/18 16:15 (NS Flush) 2 ml BID IV FLUSH 02/11/18 21:00 (Tylenol) 650 mg Q4H PRN PO 02/11/18 16:15 UNV (Zofran Inj) 4 mg Q6H PRN IVP 02/11/18 16:15 UNV (Reglan Inj) 5 mg Q6H PRN IV PUSH 02/11/18 16:15 UNV (Lovenox Inj) 40 mg Q24H SQ 02/11/18 16:15 UNV (Tylenol) 650 mg Q6H PRN PO 02/11/18 16:15 UNV (Percocet 5-325 Mg) 1 tab Q6H PRN PO 02/11/18 16:15 UNV (Percocet 10-325 Mg) 1 tab Q6H PRN PO 02/11/18 16:15 UNV (Morphine Inj) 2 mg Q3H PRN IV PUSH 02/11/18 16:15 UNV (Morphine Inj) 4 mg Q3H PRN IV PUSH 02/11/18 16:15 UNV (Morphine Inj) 4 mg Q3H PRN IV PUSH 02/11/18 16:15 UNV (Narcan Inj) 0.4 mg UNSCH PRN IV PUSH 02/11/18 16:15 UNV (Savita-Colace) 1 tab BID PO 02/11/18 21:00 UNV (Milk Of Magnesia Liq) 30 ml Q12H PRN PO 02/11/18 16:15 UNV (Senokot) 17.2 mg Q12H PRN PO 02/11/18 16:15 UNV (Dulcolax Supp) 10 mg DAILY PRN RECTAL 02/11/18 16:15 UNV (Lactulose Liq) 30 ml DAILY PRN PO 02/11/18 16:15 UNV (Protonix) 40 mg DAILY PO 02/12/18 09:00 UNV Piperacillin Sod/ Tazobactam Sod 100 ml @ 200 mls/hr Q6H IV 02/11/18 22:00 Vancomycin HCl 1000 mg/Sodium Chloride 250 ml @ 250 mls/hr ONCE ONCE IV 02/11/18 16:15 02/11/18 17:14 UNV Pharmacy Profile Note 0 ml @ 0 mls/hr UNSCH XX 02/11/18 16:15 UNV (D50w (Vial) Inj) 50 ml UNSCH PRN IV PUSH 02/11/18 17:00 UNV (Glucagon Inj) 1 mg UNSCH PRN OTHER 02/11/18 17:00 UNV (NovoLOG SUPPLEMENTAL SCALE) 1 ACHS SLIDING SCALE SQ 02/11/18 17:00 UNV Family History Mother has diabetes Father has pacemaker placement Social History Denies alcohol use Denies tobacco use Denies illicit drug Physical Exam Vital Signs Vital Signs Date Time Temp Pulse Resp B/P (MAP) Pulse Ox O2 Delivery O2 Flow Rate FiO2 02/11/18 16:33 19 98 Room Air 02/11/18 16:31 98.6 93 17 112/58 (76) 95 Room Air 02/11/18 13:57 100.1 109 20 121/65 (83) 95 Physical Exam GENERAL: This is a well-nourished, well-developed patient, in no apparent distress. SKIN: Cool and dry. HEAD:Normocephalic. EYES: Pupils equal round and reactive. Extraocular motions intact. No scleral icterus. No injection or drainage. ENT: Nose without bleeding. Throat without erythema. Uvula midline. Airway patent. NECK: Trachea midline. CARDIOVASCULAR: Regular rate and rhythm without murmurs, gallops, or rubs. RESPIRATORY: Clear to auscultation. Breath sounds equal bilaterally. No wheezes , rales, or rhonchi. GASTROINTESTINAL: Abdomen soft, non-tender, protuberant. Bowel sounds active 4 : Suprapubic catheter in place, insertion site notable patchy redness appears to be Whitney. Draining Yellow urine. MUSCULOSKELETAL: Extremities without clubbing, cyanosis, or edema. NEUROLOGICAL: Awake and alert. Cranial nerves II through XII intact. Motor and sensory grossly within normal limits. Normal speech. Laboratory Laboratory Tests Test 02/11/18 14:10 02/11/18 14:15 Urine Color LIGHT-YELLOW Urine Turbidity HAZY Urine pH 6.0 Urine Specific [place] 1.015 Urine Protein 30 Urine Glucose (UA) NEG Urine Ketones NEG Urine Occult Blood SMALL Urine Nitrite POS Urine Bilirubin NEG Urine Urobilinogen LESS THAN 2.0 Urine Leukocyte Esterase LARGE Urine RBC 17 Urine WBC Urine WBC Clumps FEW Urine Bacteria MANY Microscopic Urinalysis Comment CATH-CULTURE IND White Blood Count 13.7 Red Blood Count 4.27 Hemoglobin 12.9 Hematocrit 37.9 Mean Corpuscular Volume 88.8 Mean Corpuscular Hemoglobin 30.1 Mean Corpuscular Hemoglobin Concent 34.0 Red Cell Distribution Width 13.2 Platelet Count 211 Mean Platelet Volume 8.1 Neutrophils (%) (Auto) 82.1 Lymphocytes (%) (Auto) 7.3 Monocytes (%) (Auto) 9.9 Eosinophils (%) (Auto) 0.4 Basophils (%) (Auto) 0.3 Neutrophils # (Auto) 11.3 Lymphocytes # (Auto) 1.0 Monocytes # (Auto) 1.4 Eosinophils # (Auto) 0.1 Basophils # (Auto) 0.0 CBC Comment DIFF FINAL Differential Comment Blood Urea Nitrogen 17 Creatinine 0.93 Random Glucose 100 Total Protein 7.8 Albumin 3.5 Calcium Level 8.7 Alkaline Phosphatase 77 Aspartate Amino Transf (AST/SGOT) 13 Alanine Aminotransferase (ALT/SGPT) 26 Total Bilirubin 0.3 Sodium Level 134 Potassium Level 3.9 Chloride Level 98 Carbon Dioxide Level 27.3 Anion Gap 9 Estimat Glomerular Filtration Rate 79 Lactic Acid Level 1.1 Date/Time Source Procedure Growth Status 02/11/18 14:30 Blood Peripheral Aerobic Blood Culture Pending Received 02/11/18 14:30 Blood Peripheral Anaerobic Blood Culture Pending Received 02/11/18 14:10 Urine Clean Catch Urine Culture Pending Received Result Diagram: 02/11/18 1415 02/11/18 1415 Imaging Last Impressions Chest X-Ray 02/11/18 1408 Signed Impressions: Service Date/Time: Sunday, February 11, 2018 14:30 - CONCLUSION: Normal examination. MD Jay Porter VTE Risk Assessment Jay VTE Risk Assessment: Mod/High Risk (score >= 2) Caprini Risk Assessment Model Point Value = 1 Point Value = 2 Point Value = 3 Point Value = 5 Age 41-60 Minor surgery BMI > 25 kg/m2 Swollen legs Varicose veins or History of unexplained or recurrent spontaneous Oral contraceptives or hormone replacement Sepsis (< 1 month) Serious lung disease, including pneumonia (< 1 month) Abnormal pulmonary function Acute myocardial infarction Congestive heart failure (< 1 month) History of inflammatory bowel disease Medical patient at bed rest Age 61-74 Arthroscopic surgery Major open surgery (> 45 min) Laparoscopic surgery (> 45 min) Malignancy Confined to bed (> 72 hours) Immobilizing plaster cast Central venous access Age >= 75 History of VTE Family history of VTE Factor V Leiden Prothrombin [id number] Lupus anticoagulant Anticardiolipin antibodies Elevated serum homocysteine Heparin-induced thrombocytopenia Other congenital or acquired thrombophilia Stroke (< 1 month) Elective arthroplasty Hip, pelvis, or leg fracture Acute spinal cord injury (< 1 month) Prophylaxis Regimen Total Risk Factor Score Risk Level Prophylaxis Regimen 0-1 Low Early ambulation 2 Moderate Order ONE of the following: *Sequential Compression Device (SCD) *Heparin 5000 units SQ BID 3-4 Higher Order ONE of the following medications: *Heparin 5000 units SQ TID *Enoxaparin/Lovenox 40 mg SQ daily (WT < 150 kg, CrCl > 30 mL/min) *Enoxaparin/Lovenox 30 mg SQ daily (WT < 150 kg, CrCl > 10-29 mL/min) *Enoxaparin/Lovenox 30 mg SQ BID (WT < 150 kg, CrCl > 30 mL/min) AND/OR *Sequential Compression Device (SCD) 5 or more Highest Order ONE of the following medications: *Heparin 5000 units SQ TID (Preferred with Epidurals) *Enoxaparin/Lovenox 40 mg SQ daily (WT < 150 kg, CrCl > 30 mL/min) *Enoxaparin/Lovenox 30 mg SQ daily (WT < 150 kg, CrCl > 10-29 mL/min) *Enoxaparin/Lovenox 30 mg SQ BID (WT < 150 kg, CrCl > 30 mL/min) AND *Sequential Compression Device (SCD) Assessment and Plan Problem List: (1) UTI (urinary tract infection) ICD Code: N39.0 - Urinary tract infection, site not specified Status: Acute (2) Sepsis ICD Code: A41.9 - Sepsis, unspecified organism Status: Acute (3) Hyponatremia ICD Code: E87.1 - Hypo-osmolality and hyponatremia Status: Acute (4) Diabetes mellitus ICD Code: E11.9 - Type 2 diabetes mellitus without complications Status: Chronic Assessment and Plan Patient is a 77-year-old male with primary medical history of type 2 diabetes, HLD, chronic back pain, urinary retention, suprapubic catheter secondary to neurogenic bladder who came into the hospital for complaints of not feeling well , burning sensation, bladder spasms 2 days. SIRS, sepsis secondary to urinary tract infection -Elevated HR, Elevated WBC, Elevated Temp, Elevated RR -No Organ Disfunction -Monitor Labs -Check Blood Cultures, UA abnormal. Pending cultures. -Lactic Acid 1.1 -IV Antibiotics Zosyn. Patient received 1 dose Vanco in the ED. Previous culture growing E. coli, Klebsiella oxytoca, with resistance to Bactrim, trimethoprim, gentamicin, Cipro, ampicillin -IV fluids -CXR normal examination -Pain control IV morphine, Percocet -Telemetry -Supportive Care DM Type 2, controlled, with nephropathy, No acute complication -No Long-term insulin use, on metformin and glipizide -Hold off home dose medication -Accu-Cheks, insulin sliding scale -Monitor for hypoglycemia Pre-Renal, CKD 2 -Monitor renal indices HTN HLD -Continue home medications statin, ASA 81mg, amlodipine 10 mg daily DVT prop Lovenox Code Status Full code Discussed Condition With Patient, nursing, Dr. Ivy Physician Certification 2 Midnight Certification Type: Admission for Inpatient Services Order for Inpatient Services The services are ordered in accordance with Medicare regulations or non- Medicare payer requirements, as applicable. In the case of services not specified as inpatient-only, they are appropriately provided as inpatient services in accordance with the 2-midnight benchmark. Estimated LOS (days): 2 days is the estimated time the patient will need to remain in the hospital, assuming treatment plan goals are met and no additional complications. Post-Hospital Plan: Home Problem Qualifiers (1) UTI (urinary tract infection): Qualified Codes: N39.0 - Urinary tract infection, site not specified (2) Sepsis: Qualified Codes: A41.9 - Sepsis, unspecified organism Demario Arthur Feb 11, 2018 18:04
[2018-02-11] MEDS ORDERED: VANCOMYCIN INJ 2,000 MG in SODIUM CHLORID 0.9% 500 ML INJ 500 ML IV ONE (18:15)
[2018-02-11] MEDS: SODIUM CHLOR 0.9% 1000 ML INJ 1,000 ML IV SCH (19:28)
[2018-02-11] MEDS: ENOXAPARIN SODIUM 40 MG/0.4 ML SYRINGE SQ SCH (19:28)
[2018-02-11 20:00] VITALS: BP 118/55; PULSE 88; RESP 17; TEMP 98.1; O2SAT 96
[2018-02-11 21:00] VITALS: PULSE 72
[2018-02-11] MEDS ORDERED: SODIUM CHLORIDE 0.9% FLUSH 10 ML FLUSH IV FLUSH SCH (21:00)
[2018-02-11] MEDS: DOCUSATE SODIUM 50 MG/SENNA 8.6 MG TAB PO SCH (21:02)
[2018-02-11] MEDS: SODIUM CHLORIDE 1 GRAM TAB PO SCH (21:02)
[2018-02-11] MEDS: SODIUM CHLORIDE 0.9% FLUSH 10 ML FLUSH IV FLUSH SCH (21:02)
[2018-02-11] MEDS: PIPERACIL-TAZO 4.5 GM PREMIX 100 ML IV SCH (22:21)
[2018-02-11 22:35] LABS: TROPONIN I LESS THAN 0.02 NG/ML (0.02-0.05)
[2018-02-11 22:58] LABS: TROPONIN I LESS THAN 0.02 NG/ML (0.02-0.05)
--- NOTE | 2018-02-11 23:20 | EKG ---
Date Performed: 02/11/2018 Time Performed: 22:08:18 PTAGE: 77 years EKG: PROBABLE Sinus rhythm BASELINE ARTIFACT MARKED LEFT AXIS DEVIATION INCOMPLETE RIGHT BUNDLE BRANCH BLOCK ABNORMAL ECG PREVIOUS TRACING : 02/11/2018 16.40 Since the previous tracing, no significant change noted DOCTOR: Nathanael Arreguin Interpretating Date/Time 02/11/2018 23:20:14
--- NOTE | 2018-02-11 23:30 | EKG ---
Date Performed: 02/11/2018 Time Performed: 16:40:48 PTAGE: 77 years EKG: Sinus rhythm WITH FIRST DEGREE AV BLOCK WITH FREQUENT VENTRICULAR PREMATURE COMPLEXES MARKED LEFT AXIS DEVIATION INCOMPLETE RIGHT BUNDLE BRANCH BLOCK NONSPECIFIC T-WAVE ABNORMALITY ABNORMAL ECG Since the PREVIOUS TRACING , no significant change noted DOCTOR: Nathanael Arreguin Interpretating Date/Time 02/11/2018 23:29:02
[2018-02-12] VITALS (10 sets, daily range): BP systolic 95–126; BP diastolic 55–76; PULSE 71–104; RESP 17–18; TEMP 97.1–98.8; O2SAT 91–98
[2018-02-12] MEDS: SODIUM CHLOR 0.9% 1000 ML INJ 1,000 ML IV SCH ×3 (05:32→18:45)
[2018-02-12] MEDS: PIPERACIL-TAZO 4.5 GM PREMIX 100 ML IV SCH ×4 (05:33→20:45)
[2018-02-12] MEDS: VANCOMYCIN INJ 1,250 MG in SODIUM CHLOR 0.9% 250 ML INJ 250 ML IV SCH ×2 (06:29→17:12)
[2018-02-12] MEDS ORDERED: NON-FORMULARY DRUG (Coenzyme Q10 (Ubidecarenone) (Coq-10) 1 TAB) PO SCH (09:00)
[2018-02-12] MEDS: SODIUM CHLORIDE 0.9% FLUSH 10 ML FLUSH IV FLUSH SCH ×2 (09:00→20:46)
[2018-02-12] MEDS: ASPIRIN 81 MG CHEW TAB CHEW SCH (09:48)
[2018-02-12] MEDS: PRAVASTATIN SOD 10 MG TAB PO SCH (09:48)
[2018-02-12] MEDS: DOCUSATE SODIUM 50 MG/SENNA 8.6 MG TAB PO SCH ×2 (09:48→20:39)
[2018-02-12] MEDS: PANTOPRAZOLE SOD 40 MG DELAYED RELEASE TAB PO SCH (09:48)
[2018-02-12] MEDS: SODIUM CHLORIDE 1 GRAM TAB PO SCH ×2 (09:48→20:39)
[2018-02-12] MEDS: INSULIN ASPART SUPPLEMENTAL SCALE SQ SCH ×4 (09:49→20:45)
[2018-02-12] MEDS: ACETAMINOPHEN 325 MG TAB PO PRN ×2 (11:53→17:13)
--- NOTE | 2018-02-12 16:35 | HHI.PR ---
Subjective Remarks Patient says he is feeling all right. Denies any chest pain or shortness of breath. Denies any nausea or vomiting. Objective Vital Signs Date Time Temp Pulse Resp B/P (MAP) Pulse Ox O2 Delivery O2 Flow Rate FiO2 02/12/18 12:00 98.2 104 18 118/64 (82) 91 02/12/18 11:44 85 02/12/18 08:01 96 02/12/18 08:00 98.8 101 17 124/64 (84) 92 02/12/18 04:00 97.2 76 17 126/61 (82) 98 02/12/18 00:00 97.4 76 17 123/61 (81) 98 02/11/18 21:00 72 02/11/18 20:00 98.1 88 17 118/55 (76) 96 02/11/18 19:05 I/O 02/11/18 02/11/18 02/11/18 02/12/18 02/12/18 02/12/18 06:59 14:59 22:59 06:59 14:59 22:59 Intake Total 240 ml Output Total 1300 ml Balance -1060 ml Intake Oral 240 ml Output Urine Total 1300 ml Result Diagram: 02/11/18 1415 02/11/18 1415 Objective Remarks GENERAL: Patient sitting in bed. Appears comfortable SKIN: Warm and dry. HEAD: Normocephalic. EYES: No scleral icterus. No injection or drainage. NECK: Supple, trachea midline. No JVD. CARDIOVASCULAR: Regular rate and rhythm without murmurs, gallops, or rubs. RESPIRATORY: Breath sounds equal bilaterally. No accessory muscle use. GASTROINTESTINAL: Abdomen soft, non-tender, nondistended. Suprapubic catheter with some mild drainage around the catheter, however no surrounding erythema. MUSCULOSKELETAL: No cyanosis, or edema. BACK: Nontender without obvious deformity. No CVA tenderness. A/P Assessment and Plan Patient is a 77-year-old male with primary medical history of type 2 diabetes, HLD, chronic back pain, urinary retention, suprapubic catheter secondary to neurogenic bladder who came into the hospital for complaints of not feeling well , burning sensation, bladder spasms 2 days. //SIRS, sepsis secondary to urinary tract infection -Elevated HR, Elevated WBC, Elevated Temp, Elevated RR -No Organ Disfunction -Monitor Labs -Check Blood Cultures, UA abnormal. Pending cultures. -Lactic Acid 1.1 -IV Antibiotics Zosyn. Patient received 1 dose Vanco in the ED. Previous culture growing E. coli, Klebsiella oxytoca, with resistance to Bactrim, trimethoprim, gentamicin, Cipro, ampicillin -IV fluids -CXR normal examination -Pain control IV morphine, Percocet -Telemetry -Supportive Care = Follow-up urine culture with gram-negative bacilli. Also 1 of the 4 blood cultures with coag negative staphexpected contaminant //DM Type 2, controlled, with nephropathy, No acute complication -No Long-term insulin use, on metformin and glipizide -Hold off home dose medication -Accu-Cheks, insulin sliding scale -Monitor for hypoglycemia = Blood sugars acceptable. Continue current regimen. //Pre-Renal, CKD 2 -Monitor renal indices //HTN //HLD -Continue home medications statin, ASA 81mg, amlodipine 10 mg daily //DVT prop Lovenox Discharge Planning Pending cultures. Patient will likely be able to go home with home health in several days Anupam Negrete MD Feb 12, 2018 16:35
[2018-02-12] MEDS: ENOXAPARIN SODIUM 40 MG/0.4 ML SYRINGE SQ SCH (17:11)
[2018-02-13] VITALS: BP 130/60; PULSE 72; RESP 18; TEMP 97.3; O2SAT 98
[2018-02-13 00:50] VITALS: PULSE 69
[2018-02-13] MEDS: SODIUM CHLOR 0.9% 1000 ML INJ 1,000 ML IV SCH ×2 (00:57→06:41)
[2018-02-13 04:00] VITALS: BP 151/67; PULSE 76; RESP 18; TEMP 97.7; O2SAT 98
[2018-02-13] MEDS: PIPERACIL-TAZO 4.5 GM PREMIX 100 ML IV SCH ×2 (04:00→08:48)
[2018-02-13 04:48] LABS: AUTOMATED NEUTROPHIL # 7.1 TH/MM3 (1.8-7.7); BASOPHIL % 0.2 % (0.0-2.0); EOSINOPHIL # 0.2 TH/MM3 (0-0.4); EOSINOPHIL % 2.2 % (0.0-4.0); HEMATOCRIT 36.3 % (39.0-51.0); HEMOGLOBIN 12.2 GM/DL (13.0-17.0); LYMPH % 16.3 % (9.0-44.0); LYMPHOCYTE # 1.6 TH/MM3 (1.0-4.8); MEAN CELL VOLUME 90.4 FL (80.0-100.0); MEAN CORPUSCULAR HEMOGLOBIN 30.4 PG (27.0-34.0); MEAN CORPUSCULAR HGB CONC 33.6 % (32.0-36.0); MEAN PLATELET VOLUME 8.5 FL (7.0-11.0); MONO % 10.1 % (0.0-8.0); NEUT % 71.2 % (16.0-70.0); PLATELET COUNT 143 TH/MM3 (150-450); RED BLOOD COUNT 4.01 MIL/MM3 (4.50-5.90); RED CELL DISTRIBUTION WIDTH 13.2 % (11.6-17.2)
[2018-02-13 05:07] LABS: ALBUMIN 2.5 GM/DL (3.4-5.0); BICARBONATE 25.6 MEQ/L (21.0-32.0); CALCIUM 7.6 MG/DL (8.5-10.1); CREATININE 0.94 MG/DL (0.60-1.30); PHOSPHORUS 1.8 MG/DL (2.5-4.9)
[2018-02-13] MEDS ORDERED: PHARMACY ORDERED LAB ONE (05:45)
[2018-02-13] MEDS: VANCOMYCIN INJ 1,250 MG in SODIUM CHLOR 0.9% 250 ML INJ 250 ML IV SCH (06:00)
[2018-02-13] MEDS: INSULIN ASPART SUPPLEMENTAL SCALE SQ SCH ×2 (07:16→11:44)
[2018-02-13] MEDS: SODIUM CHLORIDE 0.9% FLUSH 10 ML FLUSH IV FLUSH SCH (07:17)
[2018-02-13 08:00] VITALS: BP 128/68; PULSE 50; PULSE 93; RESP 17; TEMP 99.7; O2SAT 96
[2018-02-13] MEDS: PANTOPRAZOLE SOD 40 MG DELAYED RELEASE TAB PO SCH (08:47)
[2018-02-13] MEDS: ASPIRIN 81 MG CHEW TAB CHEW SCH (08:47)
[2018-02-13] MEDS: SODIUM CHLORIDE 1 GRAM TAB PO SCH (08:47)
[2018-02-13] MEDS: PRAVASTATIN SOD 10 MG TAB PO SCH (08:47)
[2018-02-13] MEDS: DOCUSATE SODIUM 50 MG/SENNA 8.6 MG TAB PO SCH (08:48)
[2018-02-13 12:00] VITALS: BP 138/79; PULSE 85; RESP 19; TEMP 98.5; O2SAT 95
--- NOTE | 2018-02-13 12:29 | PD.CONS ---
[facility] Service Urology Consult Requested By Dr. Negrete Reason for Consult Exchange of suprapubic catheter Primary Care Physician Gary Zayas MD Diagnosis: (1) UTI (urinary tract infection) ICD Code: N39.0 - Urinary tract infection, site not specified (2) Sepsis ICD Code: A41.9 - Sepsis, unspecified organism (3) Hyponatremia ICD Code: E87.1 - Hypo-osmolality and hyponatremia (4) Diabetes mellitus ICD Code: E11.9 - Type 2 diabetes mellitus without complications History of Present Illness 77-year-old gentleman with history neurogenic bladder dysfunction related to diabetes mellitus who is being managed with a suprapubic catheter who was admitted for plaints of generalized malaise suprapubic pain and bladder spasms. Patient was started on antibiotic therapy and a urology consult was placed to exchange of suprapubic catheter. Patient has an established urologist Dr. Jeffery whom he sees on a monthly basis for suprapubic changes. His present catheter was last exchanged approximately 2 weeks ago. Review of Systems ROS Limitations: Other As per HPI Past Family Social History Past Medical History Neurogenic bladder dysfunction Diabetes mellitus Depression Hypertension Hyperlipidemia Chronic back pain Past Surgical History Status post placement suprapubic catheter Status post Urolift procedure Status post umbilical herniorrhaphy Reported Medications Refer to EMR Allergies: Coded Allergies: No Known Allergies (Verified Allergy, Unknown, 10/24/17) Active Ordered Medications Refer to EMR Family History Mother with history diabetes mellitus Father with history cardiac arrhythmia Social History Denies tobacco, alcohol or intravenous drug abuse Physical Exam Vital Signs Date Time Temp Pulse Resp B/P (MAP) Pulse Ox O2 Delivery O2 Flow Rate FiO2 02/13/18 08:00 99.7 50 17 128/68 (88) 96 02/13/18 08:00 93 02/13/18 04:00 97.7 76 18 151/67 (95) 98 02/13/18 00:50 69 02/13/18 00:00 97.3 72 18 130/60 (83) 98 02/12/18 20:00 97.4 72 18 101/57 (72) 95 02/12/18 20:00 71 02/12/18 19:51 95 21 02/12/18 16:00 97.1 72 18 95/55 (68) 96 02/12/18 15:51 71 Physical Exam GENERAL: This is a well-nourished, well-developed patient, in no apparent distress. SKIN: No rashes, ecchymoses or lesions. Cool and dry. HEAD: Atraumatic. Normocephalic. No temporal or scalp tenderness. EYES: Pupils equal round and reactive. Extraocular motions intact. No scleral icterus. No injection or drainage. ENT: Nose without bleeding, purulent drainage or septal hematoma. Throat without erythema, tonsillar hypertrophy or exudate. Uvula midline. Airway patent. NECK: Trachea midline. No JVD or lymphadenopathy. Supple, nontender, no meningeal signs. GASTROINTESTINAL: Abdomen soft, non-tender, nondistended. No hepato-splenomegaly , or palpable masses. No guarding. GENITOURINARY: Bladder not distended, suprapubic catheter in place draining kori urine MUSCULOSKELETAL: Extremities without clubbing, cyanosis, or edema. No joint tenderness, effusion, or edema noted. No calf tenderness. Negative Homans sign bilaterally. NEUROLOGICAL: Awake and alert. Cranial nerves II through XII intact. Motor and sensory grossly within normal limits. Five out of 5 muscle strength in all muscle groups. Normal speech. Lab results reviewed: Yes Laboratory Tests Test 02/13/18 03:45 02/13/18 05:40 White Blood Count 10.0 Red Blood Count 4.01 Hemoglobin 12.2 Hematocrit 36.3 Mean Corpuscular Volume 90.4 Mean Corpuscular Hemoglobin 30.4 Mean Corpuscular Hemoglobin Concent 33.6 Red Cell Distribution Width 13.2 Platelet Count 143 Mean Platelet Volume 8.5 Neutrophils (%) (Auto) 71.2 Lymphocytes (%) (Auto) 16.3 Monocytes (%) (Auto) 10.1 Eosinophils (%) (Auto) 2.2 Basophils (%) (Auto) 0.2 Neutrophils # (Auto) 7.1 Lymphocytes # (Auto) 1.6 Monocytes # (Auto) 1.0 Eosinophils # (Auto) 0.2 Basophils # (Auto) 0.0 CBC Comment DIFF FINAL Differential Comment Blood Urea Nitrogen 11 Creatinine 0.94 Random Glucose 146 Albumin 2.5 Calcium Level 7.6 Phosphorus Level 1.8 Magnesium Level 2.0 Sodium Level 140 Potassium Level 3.9 Chloride Level 107 Carbon Dioxide Level 25.6 Anion Gap 7 Estimat Glomerular Filtration Rate 78 Vancomycin Level Trough 9.6 Date/Time Source Procedure Growth Status 02/12/18 22:06 Blood Peripheral Aerobic Blood Culture - Preliminary NO GROWTH IN 1 DAY Resulted 02/12/18 22:06 Blood Peripheral Anaerobic Blood Culture - Preliminary NO GROWTH IN 1 DAY Resulted 02/11/18 14:10 Urine Clean Catch Urine Culture - Final Enterobacter Cloacae Complete Result Diagram: 02/13/18 0345 02/13/18 0345 Imaging Last Impressions Chest X-Ray 02/11/18 1408 Signed Impressions: Service Date/Time: Sunday, February 11, 2018 14:30 - CONCLUSION: Normal examination. Corey Schumacher MD Hospital Course Procedure: 16 Frisian suprapubic catheter replaced at the bedside without difficulty using sterile technique. Assessment and Plan Assessment and Plan Urologic impression: 1. Urinary tract infection being managed appropriately by the medical service 2. Neurogenic bladder dysfunction related to diabetes mellitus requiring suprapubic catheter Plan: 1. Suprapubic catheter replaced at the bedside using sterile technique 2. Ongoing medical management as per the medicine service 3. Patient to follow-up with his established urologist Dr. Jeffery after hospital discharge. 4. Will be available as needed Problem Qualifiers (1) UTI (urinary tract infection): Qualified Codes: N39.0 - Urinary tract infection, site not specified (2) Sepsis: Qualified Codes: A41.9 - Sepsis, unspecified organism Delgado Barry MD Feb 13, 2018 12:29
--- NOTE | 2018-02-13 13:39 | HHI.FF ---
Face to Face Verification Diagnosis: (1) Metabolic encephalopathy (2) Sepsis (3) UTI (urinary tract infection) Physical Therapy Order: Evaluate and Treat Home Health Nursing Order: Nursing assessment with vital signs Branch catheter maintenance Email Engineer Order: To Evaluate: Living conditions/environment, Support services Order: To Provide: Long range planning I have seen patient Boby Villanueva on 02/13/18. My clinical findings support the need for the requested home health care services because: Limited ability to care for self I certify that my clinical findings support that this patient is homebound because: Unsafe to leave home unassisted Anupam Negrete MD Feb 13, 2018 13:39
[2018-02-13] MEDS ORDERED: CIPR250T2 PO (13:42)
--- NOTE | 2018-02-13 13:48 | HHI.PR ---
Subjective Remarks Patient says he is feeling well. Denies any chest pain or shortness of breath. Denies any abdominal discomfort. Denies suprapubic catheter pain. Objective Vital Signs Date Time Temp Pulse Resp B/P (MAP) Pulse Ox O2 Delivery O2 Flow Rate FiO2 02/13/18 12:00 98.5 85 19 138/79 (98) 95 02/13/18 08:00 99.7 50 17 128/68 (88) 96 02/13/18 08:00 93 02/13/18 04:00 97.7 76 18 151/67 (95) 98 02/13/18 00:50 69 02/13/18 00:00 97.3 72 18 130/60 (83) 98 02/12/18 20:00 97.4 72 18 101/57 (72) 95 02/12/18 20:00 71 02/12/18 19:51 95 21 02/12/18 16:00 97.1 72 18 95/55 (68) 96 02/12/18 15:51 71 I/O 02/12/18 02/12/18 02/12/18 02/13/18 02/13/18 02/13/18 06:59 14:59 22:59 06:59 14:59 22:59 Intake Total 240 ml 2184 ml 362.5 ml Output Total 1300 ml 1825 ml 2350 ml Balance -1060 ml 359 ml -1987.5 ml Intake Oral 240 ml 625 ml IV Total 1559 ml 362.5 ml Output Urine Total 1300 ml 1825 ml 2350 ml # Bowel Movements 0 Result Diagram: 02/13/18 0345 02/13/18 0345 Objective Remarks GENERAL: Patient sitting in bed. Appears comfortable. Alert and oriented 3. SKIN: Warm and dry. HEAD: Normocephalic. EYES: No scleral icterus. No injection or drainage. NECK: Supple, trachea midline. No JVD. CARDIOVASCULAR: Regular rate and rhythm without murmurs, gallops, or rubs. RESPIRATORY: Breath sounds equal bilaterally. No accessory muscle use. GASTROINTESTINAL: Abdomen soft, non-tender, nondistended. MUSCULOSKELETAL: No cyanosis, or edema. BACK: Nontender without obvious deformity. No CVA tenderness. A/P Assessment and Plan Patient is a 77-year-old male with primary medical history of type 2 diabetes, HLD, chronic back pain, urinary retention, suprapubic catheter secondary to neurogenic bladder who came into the hospital for complaints of not feeling well , burning sensation, bladder spasms 2 days. //SIRS, sepsis secondary to urinary tract infection -Elevated HR, Elevated WBC, Elevated Temp, Elevated RR -No Organ Disfunction -Monitor Labs -Check Blood Cultures, UA abnormal. Pending cultures. -Lactic Acid 1.1 -IV Antibiotics Zosyn. Patient received 1 dose Vanco in the ED. Previous culture growing E. coli, Klebsiella oxytoca, with resistance to Bactrim, trimethoprim, gentamicin, Cipro, ampicillin -IV fluids -CXR normal examination -Pain control IV morphine, Percocet -Telemetry -Supportive Care = Follow-up urine culture with gram-negative bacilli. Also 1 of the 4 blood cultures with coag negative staphexpected contaminant = Discharge home on Cipro. Appreciate neurology assistance. Suprapubic catheter has been exchanged. //DM Type 2, controlled, with nephropathy, No acute complication -No Long-term insulin use, on metformin and glipizide -Hold off home dose medication -Accu-Cheks, insulin sliding scale -Monitor for hypoglycemia = Blood sugars acceptable. Continue current regimen. //Pre-Renal, CKD 2 -Monitor renal indices. Creatinine stable. //HTN //HLD -Continue home medications statin, ASA 81mg, amlodipine 10 mg daily //DVT prop Lovenox Discharge Planning Discharge home with home health. All with urology as outpatient. Anupam Negrete MD Feb 13, 2018 13:48
--- NOTE | 2018-02-13 13:49 | HHI.DS ---
Discharge Summary Admission Date Feb 11, 2018 at 16:05 Discharge Date: Feb 13, 2018 Admitting Diagnosis sepsis, uti (1) UTI (urinary tract infection) ICD Code: N39.0 - Urinary tract infection, site not specified Status: Acute (2) Sepsis ICD Code: A41.9 - Sepsis, unspecified organism Status: Acute (3) Hyponatremia ICD Code: E87.1 - Hypo-osmolality and hyponatremia Status: Acute (4) Diabetes mellitus ICD Code: E11.9 - Type 2 diabetes mellitus without complications Status: Chronic Brief History - From Admission Patient is a 77-year-old male with primary medical history of type 2 diabetes, HLD, chronic back pain, urinary retention, suprapubic catheter secondary to neurogenic bladder who came into the hospital for complaints of not feeling well , burning sensation, bladder spasms 2 days. Patient states that his catheter was just replaced Wednesday at Dr. Jeffery's office. at the bedside. Reports that he has increasing confusion, weakness. Patient states he almost fell and thought that this has something to do with urinary infection. Reports catheter maintenance at home is done by him and his . He usually changes the bag daily. Patient states he has a leg bag so that he is able to walk around during the daytime and uses the regular big bag when he goes to bed. States they maintain a good clean technique when changing bags. Denies pain and discomfort. Denies SOB/ dyspnea. Denies chest pain, palpitations, headaches, dizziness. Denies fevers, chills, n/v/d. Denies hematuria. CBC/BMP: 02/13/18 0345 02/13/18 0345 Significant Findings Laboratory Tests Test 02/11/18 14:10 02/11/18 14:15 02/11/18 22:00 02/13/18 03:45 Urine Turbidity HAZY (CLEAR) Urine Protein 30 mg/dL (NEG-TRACE) Urine Occult Blood SMALL (NEG) Urine Nitrite POS (NEG) Urine Leukocyte Esterase LARGE (NEG) Urine RBC 17 /hpf (0-3) Urine WBC Clumps FEW (NONE) Urine Bacteria MANY /hpf (NONE) White Blood Count 13.7 TH/MM3 (4.0-11.0) Red Blood Count 4.27 MIL/MM3 (4.50-5.90) 4.01 MIL/MM3 (4.50-5.90) Hemoglobin 12.9 GM/DL (13.0-17.0) 12.2 GM/DL (13.0-17.0) Hematocrit 37.9 % (39.0-51.0) 36.3 % (39.0-51.0) Neutrophils (%) (Auto) 82.1 % (16.0-70.0) 71.2 % (16.0-70.0) Lymphocytes (%) (Auto) 7.3 % (9.0-44.0) Monocytes (%) (Auto) 9.9 % (0.0-8.0) 10.1 % (0.0-8.0) Neutrophils # (Auto) 11.3 TH/MM3 (1.8-7.7) Monocytes # (Auto) 1.4 TH/MM3 (0-0.9) 1.0 TH/MM3 (0-0.9) Aspartate Amino Transf (AST/SGOT) 13 U/L (15-37) Sodium Level 134 MEQ/L (136-145) Estimat Glomerular Filtration Rate 79 ML/MIN (>89) 78 ML/MIN (>89) Total Creatine Kinase 38 U/L (39-308) Troponin I LESS THAN 0.02 NG/ML LESS THAN 0.02 NG/ML Platelet Count 143 TH/MM3 (150-450) Random Glucose 146 MG/DL (74-106) Albumin 2.5 GM/DL (3.4-5.0) Calcium Level 7.6 MG/DL (8.5-10.1) Phosphorus Level 1.8 MG/DL (2.5-4.9) Test 02/13/18 05:40 Imaging Last Impressions Chest X-Ray 02/11/18 [id number] Signed Impressions: Service Date/Time: Sunday, February 11, 2018 14:30 - CONCLUSION: Normal examination. Corey Schumacher MD Hospital Course Patient is a 77-year-old male with primary medical history of type 2 diabetes, HLD, chronic back pain, urinary retention, suprapubic catheter secondary to neurogenic bladder who came into the hospital for complaints of not feeling well , burning sensation, bladder spasms 2 days. //SIRS, sepsis secondary to urinary tract infection -Elevated HR, Elevated WBC, Elevated Temp, Elevated RR -No Organ Disfunction -Monitor Labs -Check Blood Cultures, UA abnormal. Pending cultures. -Lactic Acid 1.1 -IV Antibiotics Zosyn. Patient received 1 dose Vanco in the ED. Previous culture growing E. coli, Klebsiella oxytoca, with resistance to Bactrim, trimethoprim, gentamicin, Cipro, ampicillin -IV fluids -CXR normal examination -Pain control IV morphine, Percocet -Telemetry -Supportive Care = Follow-up urine culture with gram-negative bacilli. Also 1 of the 4 blood cultures with coag negative staphexpected contaminant = Discharge home on Cipro. Appreciate neurology assistance. Suprapubic catheter has been exchanged. //DM Type 2, controlled, with nephropathy, No acute complication -No Long-term insulin use, on metformin and glipizide -Hold off home dose medication -Accu-Cheks, insulin sliding scale -Monitor for hypoglycemia = Blood sugars acceptable. Continue current regimen. //Pre-Renal, CKD 2 -Monitor renal indices. Creatinine stable. //HTN //HLD -Continue home medications statin, ASA 81mg, amlodipine 10 mg daily //DVT prop Lovenox Discharge Planning Discharge home with home health. All with urology as outpatient. Pt Condition on Discharge: Good Discharge Disposition: Disch w/ Home Health Serv Discharge Time: > 30 minutes Discharge Instructions DIET: Follow Instructions for: Diabetic Diet Activities you can perform: Regular-No Restrictions Follow up Referrals: PCP Follow-up - 1 Year with Gary Zayas MD Urology - 1 Week with Lux Jeffery M.d. New Medications: Ciprofloxacin (Ciprofloxacin) 250 Mg Tab 250 MG PO BID for Infection for 10 Days, #20 TAB 0 Refills Continued Medications: Amlodipine (Norvasc) 10 Mg Tab 10 MG PO DAILY for Blood Pressure Management, #31 TAB Aspirin (Aspirin) 81 Mg Chew 81 MG CHEW DAILY, TAB 0 Refills Coenzyme Q10 (Ubidecarenone) (Coq-10) 400 Mg Cap 1 TAB PO DAILY Glipizide (Glipizide) 5 Mg Tab 5 MG PO BIDAC for Blood Sugar Management, #60 TAB 0 Refills Take 30 minutes before a meal Metformin (Metformin) 1,000 Mg Tab 1000 MG PO BIDPC for Blood Sugar Management, #60 TAB 0 Refills Simvastatin (Simvastatin) 5 Mg Tab 5 MG PO DAILY for Cholesterol Management, #30 TAB 0 Refills Sodium Chloride (Sodium Chloride) 1 Gram Tab 1 GM PO BID for hyponatremia, #30 TAB Zolpidem (Ambien) 5 Mg Tab 5 MG PO HS PRN for INSOMNIA for 10 Days, TAB Discontinued Medications: Cefuroxime (Cefuroxime) 500 Mg Tab 500 MG PO Q12HR for Infection, #8 TAB Anupam Negrete MD Feb 13, 2018 13:49
[2018-02-13] MEDS ORDERED: VANCOMYCIN INJ 1,750 MG in SODIUM CHLORID 0.9% 500 ML INJ 500 ML IV SCH (18:00)
[2018-02-15] MEDS ORDERED: PHARMACY ORDERED LAB ONE (05:45)
== END 2018-02-13 17:33 | disposition home health service (06) | DRG 698 ==
LOC: NEPE 13:48 → NEDA 16:05 → N07A 18:17
PROVIDERS: ADMIT Internal Medicine; ATTEND Internal Medicine
PROC: 0T2BX0Z Change Drainage Device in Bladder, External Approach (ICD-10-PCS; principal; 2018-02-13)
DX: T83.511A Infection and inflammatory reaction due to indwelling urethral catheter, initial encounter (principal); A41.1 Sepsis due to other specified staphylococcus; E11.21 Type 2 diabetes mellitus with diabetic nephropathy; E87.1 Hypo-osmolality and hyponatremia; N39.0 Urinary tract infection, site not specified; N31.9 Neuromuscular dysfunction of bladder, unspecified; E78.5 Hyperlipidemia, unspecified; R33.9 Retention of urine, unspecified; I12.9 Hypertensive chronic kidney disease with stage 1 through stage 4 chronic kidney disease, or unspecified chronic kidney disease; G89.29 Other chronic pain; N18.2 Chronic kidney disease, stage 2 (mild); M54.9 Dorsalgia, unspecified; F32.9 Major depressive disorder, single episode, unspecified; Z79.82 Long term (current) use of aspirin; Z79.899 Other long term (current) drug therapy
CPT/HCPCS: 71045; 80053; 80069; 80202; 81001; 82550; 82948; 83605; 83735; 84484; 85025; 87040; 87077; 87086; 87186; 87205; 93005; 96361; 96374; J1650; J1815; J2405; J2543; J3370; J7030; J7040; J7050